=== PATIENT | female | born 1975 | race Caucasian/White ===

== ENCOUNTER → 2019-08-28 15:32 | Outpatient (CLI) | payer OTHER, SELFPAY ==
--- NOTE | 2019-08-28 15:44 | MRI_ITS ---
STUDY: MRI BRAIN WITH AND WITHOUT CONTRAST REASON FOR EXAM: Female, 44 years old. Ocular pain right eye. TECHNIQUE: Standardized multiplanar fat and water weighted pulse sequences were obtained. IV Dotarem 15 was administered for the contrast portion of the examination. Limited additional sequences for orbits. COMPARISON: None. FINDINGS: Normal size of the ventricles and extra-axial spaces for the patient's age. Normal white matter tracts of the supratentorial brain. There is no extra-axial fluid accumulation. Normal flow voids within the major intracranial circulation suggesting patency by spin echo criteria. Normal sella turcica and pineal gland. There is a 1 x 1 cm cystic lesion in the suprasellar cistern causing minimal superior bowing of the optic chiasm. The lesion is isointense to slightly hyperintense to lind matter on T1 and hyperintense on T2-weighted imaging. Normal pituitary infundibulum. Normal cavernous sinuses and cavernous carotid arteries. No enhancing lesion. Normal midbrain, mason and medulla. Normal cerebellum. Normal basal cisterns. Normal bilateral temporal bones. Normal bilateral internal auditory canals. No demonstrated orbital abnormality. Normal visualized paranasal sinuses. Normal calvarium and skull base. Normal visualized soft tissue structures. MRI/Brain W/WO Contrast IMPRESSION: 1. 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 Follow-up is advised. Electronically Signed: Valentina Loja MD at 19:56 EST Tel , Service support ,
== END ==
PROVIDERS: Family Provider Family Medicine; PCP Family Medicine; Referring Provider Psychiatry & Neurology Neurology; Visit Provider Psychiatry & Neurology Neurology
DX: H57.11 Ocular pain, right eye (principal)
CPT/HCPCS: 70553; A9575

== ENCOUNTER 2024-07-10 08:28 | Inpatient (IN) | payer OTHER, SELFPAY ==
[2024-07-10] VITALS (7 sets, daily range): BP systolic 107–139; BP diastolic 62–91; PULSE 72–99; RESP 16–18; TEMP 36.6–36.8; O2SAT 94–100; BMI 18.0; BMI 18.3
--- NOTE | 2024-07-10 08:50 | EX.ED.DYSGE1 ---
HPI History of Present Illness Chief Complaint: Abd Pain Detail of Chief Complaint: Abdominal pain with diarrhea Informant: patient and spouse/S.O. Onset/Context/Timing Onset: Days (Started night Wednesday.) Context: Sudden Onset Timing: Intermittent and Waxes and wanes Quality: Crampy/colicky pain Location: Generalized Current Severity: Mild Maximum Severity: Severe Worsened by: Any attempt to eat or drink anything Relieved by: Nothing Associated Symptoms Associated Symptoms: Thirst, dry mouth, orthostatic lightheadedness, decreased urine output Narrative Narrative: Patient 48-year-old woman with history of migraine headaches who was placed on antibiotic for sinus/ear infection. She was diagnosed with pseudomembranous enterocolitis and treated with vancomycin for 10 days. Her last dose of vancomycin was June 24. She presents because of diarrhea that started night Wednesday morning. She has 5+ watery stools per day. She has noted mucus. He has not noted blood. She states anytime she attempts to eat or drink anything it goes right through me . She does endorse thirst, dry mouth, orthostatic lightheadedness. She has had minimal urine output. She has not had any to eat since Wednesday. She does report crampy generalized abdominal pain.'s minimal at this time. She denies dysuria, frequency or hematuria. She denies back or flank pain. She has no other complaints. Prior similar symptoms: Yes (Diagnosed with pseudomembranous enterocolitis) Recent Illness/Hospitalization: Yes (Pseudomembranous enterocolitis June 14, 2024) [facility] [place] Medical History C. difficile diarrhea Home Medications ?Medication ?Instructions ?Recorded ?Last Taken ?Type lorazepam 1 mg tablet 1 mg PO BID PRN PRN Anxiety 01/03/17 Unknown History loperamide 2 mg capsule mg PO 07/10/24 Unknown History spironolactone 50 mg tablet mg PO 07/10/24 Unknown History topiramate 100 mg tablet 100 mg PO BID migraine 07/10/24 Unknown History Allergy/AdvReac Type Severity Reaction Status Date / Time azithromycin (From z pack) Allergy Mild Rash Verified 07/10/24 08:30 Social History (Updated 07/10/24 @ 09:[address] Willi Hanna MD) household members: spouse Smoking Status: Never smoker ROS ROS ED Constitutional Constitutional ED: Reports weight loss and other Details: Greater than a 10 pound weight loss ; Denies chills, fever(s), subjective or sweats Eyes Eyes: Denies blurry vision or change in vision ENT ENT ED: Denies ear pain, rhinorrhea or sore throat Cardiovascular Cardiovascular: Denies chest pain or palpitations Respiratory/Chest Respiratory/Chest: Denies cough, dyspnea or dyspnea on exertion Gastrointestinal Gastrointestinal: Reports abdominal pain, diarrhea, nausea, vomiting and other Details: Patient has vomited twice since onset of illness ; Denies constipation or melena Genitourinary Genitourinary ED: Reports other Details: Decreased urine output. ; Denies dysuria, hematuria or urinary frequency Musculoskeletal Musculoskeletal: Denies arthralgias or myalgias Integumentary Denies abscess or rash Neurologic Neurologic: Reports weakness; Denies headache(s) or paresthesias Hematologic/Lymphatic Hematologic/Lymphatic: Reports systems reviewed and no addt'l complaints, except as documented EXAM Physical Exam Const Vital Signs: 07/10/24 08:30 07/10/24 11:05 07/10/24 13:00 Temperature 98.1 F Temperature Source Oral Pulse Rate 99 72 81 Respiratory Rate 16 16 18 Blood Pressure 139/90 H 128/91 H 127/91 H Blood Pressure Mean 106 103 103 Pulse Ox 100 99 Oxygen Delivery Method Room Air 07/10/24 15:00 Temperature Temperature Source Pulse Rate 78 Respiratory Rate 16 Blood Pressure 117/62 Blood Pressure Mean 80 Pulse Ox 99 Oxygen Delivery Method Room Air Positive well nourished and well developed Constitutional Narrative: Patient appears ill. She is thin. Based on her weight she has lost 18 pounds. General Appearance ED: well developed and pallor; Negative for NAD HEENT Reports dry mucous membranes HEENT Narrative: Head is atraumatic normocephalic. Ears normal. Nares patent. Mouth ED: Yes dry mucous membranes Mouth: dry mucous membranes Eyes PERRL and EOMs intact bilaterally General Eye ED: Negative for pale conjunctiva or scleral icterus Neck no lymphadenopathy, supple and no JVD Chest Wall inspection of chest normal and palpation of chest normal Resp normal respiratory effort and clear to auscultation bilaterally Cardio regular rate, regular rhythm, S1 normal heart sound, S2 normal heart sound and no murmurs GI non-distended and no masses; Negative for normal to inspection, nondistended, normoactive bowel sounds, non-tender or hepatosplenomegaly GI Narrative: There is slight tympany to percussion. Bowel sounds are increased. There is some mild discomfort throughout. There is no guarding or peritoneal findings. Back/Spine no CVA tenderness Extremity normal to inspection General Extremety ED: Negative for edema or tenderness General Extremity: Negative for edema Neuro oriented x3, CN's II-XII intact bilaterally and no sensory deficits noted Sensorium / Orientation: alert Motor Exam: strength 5/5 throughout Psych Psych Narrative: Affect is flat. Skin no rashes or lesions noted, no wounds and No skin turgor normal General Skin Exam: elasticity normal and pallor; Negative for jaundice MDM MDM MDM Narrative Medical decision making narrative: Concern patient has relapse of the symptoms on her colitis. CBC, BMP, were obtained for restratification and determine treatment as well as rule out kidney injury and hypokalemia in light of the amount of diarrhea and poor p.o. intake she has. 1 L of normal saline was ordered. There are no records available at [facility] for the past several years. Test were performed at the [facility]. She was positive for C. difficile. History & Record Review Additional record(s) reviewed:: Prior outpatient record Lab Data Attestation: I reviewed the patient's lab results. Lab results narrative: CBC is essentially normal. UA reveals elevated specific gravity and positive for ketones. Macro is also positive for occult blood and leukoesterase. Suspect this is due to the fact that it is concentrated. Micro is pending. Basic metabolic panel reveals mild hypokalemia, 3.4. CO2 is 20 with an anion gap of 16. This does represent a increased anion gap acidosis consistent with diarrhea. Glucose is low at 68. Labs: Laboratory Results - last 24 hr 07/10/24 07/10/24 08:55 08:57 WBC 8.7 RBC 4.96 Hgb 14.4 Hct 44.0 MCV 88.7 MCH 29.0 MCHC 32.7 RDW Std Deviation 40.3 RDW Coeff of Stephany 12.4 Plt Count 238 MPV 10.3 Immature Gran % (Auto) 0.500 Neut % (Auto) 77.8 H Lymph % (Auto) 10.5 L Mcpherson % (Auto) 8.0 Eos % (Auto) 2.3 Baso % (Auto) 0.9 Absolute Neuts (auto) 6.7 Absolute Lymphs (auto) 0.91 Nucleated RBC % 0 Sodium 140 Potassium 3.4 L Chloride 104 Carbon Dioxide 20.0 L Anion Gap 16 H BUN 17 Creatinine 0.90 Estim Creat Clear Calc 61.75 Est GFR (MDRD) Af Amer 86 Est GFR (MDRD) Non-Af 71 BUN/Creatinine Ratio 19.0 Glucose 68 L Lactic Acid 1.5 Calcium 9.2 Urine Color Yellow Urine Clarity Sl. Cloudy Urine pH 5.0 Ur Specific [place] 1.030 Urine Protein 30 H Urine Glucose (UA) Normal Urine Ketones 150 A* Urine Occult Blood 25 H Urine Nitrite Negative Urine Bilirubin Negative Urine Urobilinogen Normal Ur Leukocyte Esterase 25 H Management Discussion w/another healthcare provider: Hospitalist (Discussed case with Dr. Pritchett. Patient be a full admit MedSurg. He will obtain CT of the abdomen.) Treatment and Re-Evaluation :: Reassessed patient at 10/11/2002. Patient is in a position. She was reluctant to take pain medicine. After her spoke to her she was agreeable. She has had 3 loose stools since arrival. Waiting for stool for C. difficile to return. 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 Patient has not urinated in spite of 1 L normal saline. Second liter of fluids was ordered. Comments:: Patient is made no urine since second liter of fluids have infused. Will order D5 half-normal at 250 an hour. The hospitalist been paged and she has had 12:45 crackers since she has been here. I suspect her diarrhea is due to recurrent Pseudomonas enterocolitis. She had 5 loose stools prior to arrival and 3 here unfortunately should not tell the nurse she had used the restroom and no sample was obtained prior to me giving her first dose of vancomycin. Discharge Plan Dx/Rx/DC Orders Clinical Impression: Diarrhea, Dehydration, Ketosis, Unintentional weight loss of more than 10 pounds, Anorexia Disposition Disposition: Acute Care [facility]
[2024-07-10] MEDS: 0.9% Normal Saline (1000mL) 1,000 ML 999 ML IV (08:57)
[2024-07-10 09:06] LABS: Absolute Lymphocyte Count 0.91 X10^3/uL (0.83-4.51); Absolute Neutrophil Count 6.7 X10^3/uL (2.0-7.7); Basophil# 0.08 X10^3/uL; Basophil% 0.9 % (0-1); Eosinophils% 2.3 % (0-5); Hemoglobin 14.4 g/dL (12.0-15.0); Lymphocyte # 0.91 X10^3/ul (0.83-4.51); Lymphocyte % 10.5 % (19-41); Mean Corp Hgb Conc 32.7 g/dL (32-36); Mean Corpuscular Volume 88.7 fL (81-99); Mean Platelet Vol. 10.3 fl (6.2-12.0); Monocyte# 0.69 X10^3/uL; NRBC Flagged by Analyzer 0 % (0-5); Neutrophil # 6.73 X10^3/uL (2.7-7.7); Neutrophil % 77.8 % (47-70); Platelet Count 238 K/mm3 (150-450); RBC Distribution Width CV 12.4 % (11.6-14.6); RBC Distribution Width SD 40.3 fl (35.1-43.9); Red Blood Count 4.96 M/mm3 (4.2-5.4); White Blood Count 8.7 K/mm3 (4.4-11.0)
[2024-07-10 09:06] LABS: Color, Urine Yellow (Yellow); Glucose, Dipstick Normal (Normal); Leukocyte Esterase-Dipstick 25 /ul (Negative); Nitrite-Dipstick Negative (Negative); Occult Blood-Urine 25 /ul (Negative); Protein-Dipstick 30 mg/dl (Negative); Urine Bilirubin Dipstick Negative (Negative); Urine Clarity Sl. Cloudy (Clear); Urine Urobilinogen Normal (Normal)
[2024-07-10 09:10] LABS: Ketone-Dipstick 150 mg/dl (Negative)
[2024-07-10 09:21] LABS: Anion Gap 16 (5-15); BUN 17 mg/dL (7-18); Calcium,Total 9.2 mg/dL (8.5-10.1); Chloride 104 mmol/L (98-107); EST Glomerular Filtration Rate 71 mL/min (>60); Est Glom Filt Rate - Afr Amer 86 mL/min (>60); Estimated Creatinine Clearance 61.75 ml/min; Glucose 68 mg/dL (74-106); Potassium 3.4 mmol/L (3.5-5.1); Sodium Level 140 mmol/L (136-145)
[2024-07-10 09:30] LABS: Lactic Acid 1.5 mmol/L (0.4-1.9)
[2024-07-10] MEDS: Dextrose 5%/0.9% NaCl 1,000 ML 1000 ML IV (11:35)
[2024-07-10] MEDS: Vancomycin 125 MG/5 ML Susp PO.SYRINGE PO ×2 (11:55→18:41)
[2024-07-10] MEDS: Morphine 2 MG/ML Syringe IV (11:55)
--- NOTE | 2024-07-10 15:15 | HP.PCM.HOS_ITS ---
HPI - General General Date of Admission: 07/10/24 Date of Service: 07/10/24 Chief Complaint: Abdominal pain with loose stools HPI Narrative MANSOOR STANLEY, is a 48 F who presented to [facility] ED on 07/10/2024 with worsening abdominal pain and loose stools. Patient was recently diagnosed with C. difficile by her PCP. She saw her PCP about 2 weeks ago for new onset diarrhea. Patient was having 10+ bowel movements per day. Patient had been on antibiotics in April (amoxicillin and doxycycline) for an upper respiratory infection. Her C. difficile toxin was positive on 06/24. She completed 10 days p.o. vancomycin last Thursday 07/05. However, she did not have complete resolution of loose stools while on the vancomycin and had worsening stool output by evening. Since she has been having 5+ bowel movements per day of watery diarrhea. She denies any blood in the stool. She has not been able to eat or drink much since due to some nausea and that everything she eats or drinks seems to go right through her. She reports abdominal cramping in her lower abdomen fairly diffusely. Denies any areas of significant tenderness to palpation. Patient was hemodynamically stable and afebrile in the ED. Labs notable for normal WBC count of 8, potassium 3.4, bicarb 20, creatinine 0.90, normal lactic acid, normal LFTs. UA showed 150 ketones, was otherwise benign. CT abdomen pelvis with IV contrast showed diffuse colonic wall thickening with mild pericolonic fat stranding, with findings most severe in the ascending and transverse colon. Given his findings, hospitalist was contacted for admission. I saw the patient at bedside in the ED, was present. Patient was mildly fatigued appearing but otherwise laying fairly comfortably in bed, conversing normally, in no acute distress. She had been given a dose of IV morphine about an hour prior to my encounter with her and she stated this was very helpful for her pain. She has not had any bowel movements since this morning. She denied any fevers or chills. Denied any other pain or discomfort. She has minimal past medical history. Has history of migraines and takes topiramate and also gets Botox injections for this. Only other medication is spironolactone that she takes for acne. Has never had a colonoscopy before. No other acute concerns at this time. [facility] Medical History (Updated 07/10/24 @ 17:[address] Eric Pritchett, DO) Non-smoker Migraines C. difficile diarrhea Home Medications ?Medication ?Instructions ?Recorded ?Last Taken ?Type onabotulinumtoxinA .ROUTE MIGRANES 07/10/24 Unknown History spironolactone 50 mg tablet 50 mg PO DAILY ACNE 07/10/24 Unknown History topiramate 100 mg tablet 100 mg PO DAILY migraine 07/10/24 Unknown History Allergy/AdvReac Type Severity Reaction Status Date / Time azithromycin (From z pack) Allergy Mild Rash Verified 07/10/24 08:30 Surgical History (Updated 07/10/24 @ 16:27 by Tracy Luciano) History of cholecystectomy Social History (Updated 07/10/24 @ 09:[address] Willi Hanna MD) household members: spouse Smoking Status: Never smoker ROS Constitutional Constitutional: Reports fatigue; Denies chills, fever(s) or weakness Eyes Eyes: Denies change in vision Cardiovascular Cardiovascular: Denies chest pain Respiratory/Chest Respiratory/Chest: Denies shortness of breath at rest Gastrointestinal Gastrointestinal: Reports abdominal pain, diarrhea, loose stools and nausea; Denies constipation, hematochezia, melena or vomiting Genitourinary Genitourinary: Denies dysuria Musculoskeletal Musculoskeletal: Denies arthralgias or myalgias Neurologic Neurologic: Denies dizziness, focal weakness or headache(s) Vital Signs Vital Signs Vital Signs: 07/10/24 08:30 07/10/24 11:05 07/10/24 13:00 Temperature 98.1 F Temperature Source Oral Pulse Rate 99 72 81 Respiratory Rate 16 16 18 Blood Pressure 139/90 H 128/91 H 127/91 H Blood Pressure Mean 106 103 103 Pulse Ox 100 99 Oxygen Delivery Method Room Air 07/10/24 15:00 Temperature Temperature Source Pulse Rate 78 Respiratory Rate 16 Blood Pressure 117/62 Blood Pressure Mean 80 Pulse Ox 99 Oxygen Delivery Method Room Air Weight Weight: 50.621 kg Body Mass Index (BMI) 18.0 Physical Exam Const alert, oriented x3 and no apparent distress Constitutional Narrative: Pleasant middle-age female, thin appearing, mildly fatigued appearing, otherwise laying comfortably in bed, conversing normally, in no acute distress. General Appearance: cooperative and comfortable HEENT normocephalic, head/scalp atraumatic, hearing grossly normal bilaterally and nasal mucous membranes and turbinates normal Eyes PERRL, EOMs intact bilaterally and conjunctivae normal Neck full ROM Chest inspection of chest normal Resp normal respiratory effort, normal air movement, no use of accessory muscles and clear to auscultation bilaterally Cardio regular rate, regular rhythm, no murmurs and peripheral pulses 2+ throughout GI GI Narrative: Mild tenderness to palpation diffusely in lower abdomen. Abdomen otherwise soft and nondistended with normal bowel sounds. Back/Spine normal ROM Extremity normal to inspection, full ROM and no pedal edema Skin no rashes or lesions noted Neuro moves all extremities and no focal motor deficits Speech: speech normal Psych mental status grossly normal Results Lab / Micro Data 07/10/24 08:55 07/10/24 08:55 Labs: Laboratory Results - last 24 hr 07/10/24 08:55: WBC 8.7, RBC 4.96, Hgb 14.4, Hct 44.0, MCV 88.7, MCH 29.0, MCHC 32.7, RDW Std Deviation 40.3, RDW Coeff of Stephany 12.4, Plt Count 238, MPV 10.3, Immature Gran % (Auto) 0.500, Neut % (Auto) 77.8 H, Lymph % (Auto) 10.5 L, Villalba % (Auto) 8.0, Eos % (Auto) 2.3, Baso % (Auto) 0.9, Absolute Neuts (auto) 6.7, Absolute Lymphs (auto) 0.91, Nucleated RBC % 0, Sodium 140, Potassium 3.4 L, Chloride 104, Carbon Dioxide 20.0 L, Anion Gap 16 H, BUN 17, Creatinine 0.90, Estim Creat Clear Calc 61.75, Est GFR (MDRD) Af Amer 86, Est GFR (MDRD) Non-Af 71, BUN/Creatinine Ratio 19.0, Glucose 68 L, Lactic Acid 1.5, Calcium 9.2 07/10/24 08:57: Urine Color Yellow, Urine Clarity Sl. Cloudy, Urine pH 5.0, Ur Specific [place] 1.030, Urine Protein 30 H, Urine Glucose (UA) Normal, Urine Ketones 150 A*, Urine Occult Blood 25 H, Urine Nitrite Negative, Urine Bilirubin Negative, Urine Urobilinogen Normal, Ur Leukocyte Esterase 25 H Assessment & Plan Assessment/Plan (1) Colitis: (2) C. difficile enteritis: (3) Underweight: PLAN: Plan Patient is a 48-year-old female who presented [facility] ED on 07/10/2024 with worsening abdominal pain and diarrhea. 1. Diffuse colitis, recent history of C. difficile infection ? Admit under inpatient status to [facility]. GI consulted. CT abdomen pelvis on admit showed diffuse colitis, worst in the ascending and transverse colon. C. difficile toxin was positive on 06/24 (in [facility] records). Completed 10-day course of vancomycin without much improvement. Patient afebrile, hemodynamically stable, normal WBC count so no concern for severe C. difficile infection. Suspect findings are in part due to failed antibiotic therapy for C. difficile but cannot rule out secondary pathology. Enteric stool panel, stool WBC and lactoferrin ordered. Unfortunately it does not appear we have fidaxomicin on formulary. Will treat with p.o. vancomycin for now; appreciate further GI recommendations. Clear liquid diet ordered. Low-dose p.o. oxycodone and IV Dilaudid as needed ordered for pain management. 2. Mild hypokalemia ? Potassium 3.4 on admit. Mag and Phos normal. Suspect due to GI losses. Replete as needed. 3. Underweight BMI ? BMI 18.4 on admit. Patient reports being thin at baseline but has not been eating much over the past few weeks due to the C. difficile infection. Nutrition consulted. 4. History of migraines ? Stable. Continue home topiramate. 5. History of acne ? Continue home spironolactone. DVT prophylaxis: Lovenox CODE STATUS: Full code, verified Expected disposition: Home, 2 to 3 days Total clinical time spent by myself addressing the patient's medical issues, reviewing all the data, and collaborating with patient's care team: 55 minutes. Charges/Coding Visit Charges Inpatient E&M: 21874 Init Hosp L2
--- NOTE | 2024-07-10 15:20 | CT_ITS ---
INDICATION: worsening abd pain w/ concern for recurrent c diff EXAMINATION: CT ABDOMEN AND PELVIS WITH CONTRAST - CT Abdomen And Pelvis W/ Contrast Injection TECHNIQUE: Helically acquired images were obtained of the abdomen and pelvis following IV contrast. A radiation dose optimization technique was used for this scan. IV Contrast dosage and agent: 75 cc [id number]-300 Oral contrast: None. COMPARISON: None. FINDINGS: LOWER CHEST: Lung bases are clear. No cardiomegaly or pericardial effusion. LIVER: Homogeneous. No focal mass. GALLBLADDER AND BILIARY TREE: Gallbladder not seen, presumed surgically absent. No intra- or extrahepatic biliary ductal dilation. PANCREAS: No focal cystic or solid mass. SPLEEN: Normal size without focal cystic or solid mass. ADRENAL GLANDS: No nodules. KIDNEYS AND URETERS: Uniform enhancement. No hydronephrosis. PERITONEUM: No ascites or free air. BOWEL: Normal appendix. No stomach or bowel distension. Diffuse colonic wall thickening with mild pericolonic fatty stranding, findings most severe in the ascending and transverse colon. LYMPH NODES: No enlarged mesenteric or retroperitoneal lymph nodes. VESSELS: Aorta is non-dilated. URINARY BLADDER: Unremarkable. REPRODUCTIVE ORGANS: No pelvic masses. ABDOMINAL WALL: Small fat-containing umbilical hernia. BONES: No acute or aggressive abnormality. CT/Abdomen/Pelvis W IV Cont ONLY IMPRESSION: Findings consistent with diffuse colitis. Electronically Signed: Niko Melvin MD at 16:10 EDT ,
[2024-07-10] MEDS: Dextrose 5%/0.9% NaCl 1,000 ML 250 ML IV (15:56)
[2024-07-10 16:26] LABS: AST(SGOT) 18 U/L (15-37); Alanine Aminotransfer ALT/SGPT 21 U/L (13-56); Alkaline Phosphatase 61 U/L (45-117); Bilirubin, Direct 0.14 mg/dL (0.00-0.30); Globulin 3.9 g/dL (2.2-4.2); Magnesium 2.1 mg/dL (1.6-2.6); Phosphorus 3.2 mg/dL (2.5-4.9); Protein, Total 7.9 g/dL (6.4-8.2)
[2024-07-10] MEDS: 0.9% Saline Lock 10 ML Syringe IV (17:20)
[2024-07-10] MEDS: Ondansetron 4 MG/2 ML Vial IV (17:20)
[2024-07-10] MEDS: Acetaminophen 325 MG Tablet 650 MG PO (17:20)
[2024-07-10] MEDS: Lactated Ringers 1,000 ML 75 ML IV (17:20)
--- NOTE | 2024-07-10 18:34 | CON.PCM.GI_ITS ---
HPI Consult Data Date of Consult: 07/10/24 HPI Narrative HPI Narrative: MANSOOR STANLEY, is a 48 F who presented with worsening abdominal pain. She has a past medical history of migraine headaches who was placed on antibiotic for sinus/ear infection. She was diagnosed with pseudomembranous enterocolitis and treated with vancomycin for 10 days. Her last dose of vancomycin was June 24. She presents because of diarrhea that started night Wednesday morning. She has 5+ watery stools per day. She has noted mucus. He has not noted blood. She states anytime she attempts to eat or drink anything it goes right through me . She does endorse thirst, dry mouth, orthostatic lightheadedness. She has had minimal urine output. She has not had any to eat since Wednesday. She was afebrile when she presented to the hospital. CBC shows normal white count with normal BUN to creatinine ratio. She had a CT scan abdomen pelvis in the ED which showed diffuse colitis throughout almost her entire colon. She has not had any bowel movements since she received vancomycin in the hospital.At this time she is having some mild abdominal pain and cramping. She denies any blood per rectum. [facility] Medical History (Updated 07/10/24 @ 17:[address] Eric Pritchett, DO) Non-smoker Migraines C. difficile diarrhea Home Medications ?Medication ?Instructions ?Recorded ?Last Taken ?Type onabotulinumtoxinA .ROUTE MIGRANES 07/10/24 Unknown History spironolactone 50 mg tablet 50 mg PO DAILY ACNE 07/10/24 Unknown History topiramate 100 mg tablet 100 mg PO DAILY migraine 07/10/24 Unknown History Allergy/AdvReac Type Severity Reaction Status Date / Time azithromycin (From z pack) Allergy Mild Rash Verified 07/10/24 08:30 Surgical History (Updated 07/10/24 @ 16:27 by Tracy Luciano) History of cholecystectomy Social History (Updated 07/10/24 @ 09:[address] Willi Hanna MD) household members: spouse Smoking Status: Never smoker ROS Constitutional Constitutional: Reports fatigue; Denies chills, fever(s) or weakness Eyes Eyes: Denies change in vision Cardiovascular Cardiovascular: Denies chest pain Respiratory/Chest Respiratory/Chest: Denies shortness of breath at rest Gastrointestinal Gastrointestinal: Reports abdominal pain, diarrhea, loose stools and nausea; Denies constipation, hematochezia, melena or vomiting Genitourinary Genitourinary: Denies dysuria Musculoskeletal Musculoskeletal: Denies arthralgias or myalgias Neurologic Neurologic: Denies dizziness, focal weakness or headache(s) Physical Exam Const alert, oriented x3 and no apparent distress General Appearance: cooperative and comfortable HEENT normocephalic, head/scalp atraumatic, hearing grossly normal bilaterally and nasal mucous membranes and turbinates normal Eyes PERRL, EOMs intact bilaterally and conjunctivae normal Neck full ROM Chest inspection of chest normal Resp normal respiratory effort, normal air movement, no use of accessory muscles and clear to auscultation bilaterally Cardio regular rate, regular rhythm, no murmurs and peripheral pulses 2+ throughout GI GI Narrative: Mild tenderness to palpation diffusely in lower abdomen. Abdomen otherwise soft and nondistended with normal bowel sounds. Back/Spine normal ROM Extremity normal to inspection, full ROM and no pedal edema Skin no rashes or lesions noted Neuro moves all extremities and no focal motor deficits Speech: speech normal Psych mental status grossly normal Lab / Micro Data 07/10/24 08:55 07/10/24 08:55 Labs: Laboratory Results - last 24 hr 07/10/24 08:55: WBC 8.7, RBC 4.96, Hgb 14.4, Hct 44.0, MCV 88.7, MCH 29.0, MCHC 32.7, RDW Std Deviation 40.3, RDW Coeff of Stephany 12.4, Plt Count 238, MPV 10.3, Immature Gran % (Auto) 0.500, Neut % (Auto) 77.8 H, Lymph % (Auto) 10.5 L, [place] % (Auto) 8.0, Eos % (Auto) 2.3, Baso % (Auto) 0.9, Absolute Neuts (auto) 6.7, Absolute Lymphs (auto) 0.91, Nucleated RBC % 0, Sodium 140, Potassium 3.4 L, Chloride 104, Carbon Dioxide 20.0 L, Anion Gap 16 H, BUN 17, Creatinine 0.90, Estim Creat Clear Calc 61.75, Est GFR (MDRD) Af Amer 86, Est GFR (MDRD) Non-Af 71, BUN/Creatinine Ratio 19.0, Glucose 68 L, Lactic Acid 1.5, Calcium 9.2, Phosphorus 3.2, Magnesium 2.1, Total Bilirubin 0.50, Direct Bilirubin 0.14, AST 18, ALT 21, Alkaline Phosphatase 61, Total Protein 7.9, Albumin 4.0, Globulin 3.9 07/10/24 08:57: Urine Color Yellow, Urine Clarity Sl. Cloudy, Urine pH 5.0, Ur Specific [place] 1.030, Urine Protein 30 H, Urine Glucose (UA) Normal, Urine Ketones 150 A*, Urine Occult Blood 25 H, Urine Nitrite Negative, Urine Bilirubin Negative, Urine Urobilinogen Normal, Ur Leukocyte Esterase 25 H Imaging Radiology Impression Abdomen/Pelvis CT 07/10/24 15:20 IMPRESSION: Findings consistent with diffuse colitis. Electronically Signed: Niko Melvin MD at 16:10 EDT , Assessment & Plan Assessment/Plan (1) Colitis: (2) C. difficile enteritis: (3) Underweight: PLAN: Plan Patient is a 48-year-old female who presented with worsening abdominal pain and diarrhea.She recently finished a course of vancomycin for acute C. difficile colitis secondary to antibiotics that she received as an outpatient. She has been on probiotics. She has not had any more antibiotics. As per whose with her at the bedside he says that her symptoms really never got better and she did complain of some cramping and diarrhea. Her enteric stool panel, CBC, lactoferrin is pending. She will need to get fecal elastase and fecal calprotectin along with labs for inflammatory bowel disease. That is also on the differential diagnosis along with ischemic colitis. She is okay with the plan. She would likely need to be on antibiotics for the next 6 weeks. After that is completed she will likely need monoclonal antibody for toxin A. Charges/Coding Visit Charges Inpatient E&M: 82959 Init Hosp L3
[2024-07-11] VITALS (7 sets, daily range): BP systolic 106–123; BP diastolic 71–78; PULSE 75–99; RESP 16–18; TEMP 36.6–37.3; O2SAT 94–100
[2024-07-11] MEDS: Acetaminophen 325 MG Tablet 650 MG PO ×2 (00:02→21:44)
[2024-07-11] MEDS: Vancomycin 125 MG/5 ML Susp PO.SYRINGE PO ×5 (00:03→23:47)
[2024-07-11] MEDS: Lactated Ringers 1,000 ML 75 ML IV ×2 (05:48→17:46)
[2024-07-11] MEDS: Ondansetron 4 MG/2 ML Vial IV ×2 (06:44→16:08)
[2024-07-11 07:03] LABS: Hematocrit 37.3 % (37-47); Hemoglobin 12.3 g/dL (12.0-15.0); Mean Corpuscular Hgb 28.5 pg (27.0-32.0); Mean Corpuscular Volume 86.3 fL (81-99); Mean Platelet Vol. 10.1 fl (6.2-12.0); Platelet Count 227 K/mm3 (150-450); RBC Distribution Width CV 12.3 % (11.6-14.6); RBC Distribution Width SD 39.1 fl (35.1-43.9); Red Blood Count 4.32 M/mm3 (4.2-5.4); White Blood Count 6.5 K/mm3 (4.4-11.0)
[2024-07-11 07:14] LABS: AST(SGOT) 17 U/L (15-37); Alanine Aminotransfer ALT/SGPT 18 U/L (13-56); Albumin, Serum 3.1 g/dL (3.2-5.0); Alkaline Phosphatase 47 U/L (45-117); Anion Gap 9 (5-15); BUN 7 mg/dL (7-18); BUN/Creat Ratio 12.7 RATIO (10-20); Calcium,Total 8.4 mg/dL (8.5-10.1); Chloride 109 mmol/L (98-107); Creatinine, Serum 0.55 mg/dL (0.55-1.02); EST Glomerular Filtration Rate 125 mL/min (>60); Est Glom Filt Rate - Afr Amer 151 mL/min (>60); Estimated Creatinine Clearance 103.13 ml/min; Globulin 3.2 g/dL (2.2-4.2); Glucose 74 mg/dL (74-106); Potassium 3.3 mmol/L (3.5-5.1); Protein, Total 6.3 g/dL (6.4-8.2); Sodium Level 138 mmol/L (136-145)
[2024-07-11] MEDS: Dicyclomine 10 MG Capsule 20 MG PO ×3 (08:44→16:07)
[2024-07-11] MEDS: Spironolactone 50 MG Tablet PO (09:57)
[2024-07-11] MEDS: Enoxaparin 40 MG/0.4 ML Syringe SC (09:57)
[2024-07-11] MEDS: Topiramate 100 MG Tablet PO (09:58)
--- NOTE | 2024-07-11 12:30 | CASEMGMT ---
DONNA WHEELER Assessment: Face to Face with pt for initial transition planning/care coordination assessment. DONNA WHEELER introduced self and role at [facility], pt voices understanding and consents to assessment. Pt is A&O x4 and answers all questions appropriately at this time. Pt lying in bed in no distress. Care providers, pharmacy, and demographics verified/updated. Admitting Dx: abd pain with diarrhea, concern for cdiff Strata Score: 1 PCP:Chin Specialists:cody Jarrell Preferred Pharmacy: [facility] Insurance: [employer] Prescription Benefit: yes LNOK: Hussain Marcelo, Living Arrangements: Pt lives with in a single story home with 2 steps to enter. Pt reports she is I in ADLs and denies concerns at home. Transportation: Pt drives self and denies concerns with transportation. DME:Denies HHC/SNF: Denies hx of Pt states no concerns with going home at time of dc. Pt states no further concerns/needs. CM to follow. Advised pt to ask CM if any further question/concerns/needs arise, voices understanding. Pt Goal: Home Plan: Home [place] CM
--- NOTE | 2024-07-11 13:08 | PN.HOSP_ITS ---
Reason for Visit Reason for Visit: Diagnoses Enterocolitis due to Clostridium difficile, not specified as recurrent (07/10/24) Noninfective gastroenteritis and colitis, unspecified (07/10/24) Underweight (07/10/24) Objective Data Objective Data Vital Signs: Vital Signs Temp Pulse Resp BP Pulse Ox O2 Del Method 97.9 F 87 18 123/71 H 94 Room Air 07/11/24 05:00 07/11/24 05:00 07/11/24 05:00 07/11/24 05:00 07/11/24 05:00 07/11/24 05:00 Oxygen Delivery Method Room Air Weight: 113 lb 14.4 oz Body Mass Index (BMI) 18.3 Intake & Output: Intake and Output for Last 24 Hours 07/09/24 07/10/24 07/11/24 23:59 23:59 23:59 Intake Total 2429.17 / 3285.17 2447 / 2447 Balance 2429.17 / 3285.17 2447 / 2447 Lab / Micro Data 07/11/24 06:40 07/11/24 06:40 Labs: Laboratory Results - last 24 hr 07/10/24 08:55: WBC 8.7, RBC 4.96, Hgb 14.4, Hct 44.0, MCV 88.7, MCH 29.0, MCHC 32.7, RDW Std Deviation 40.3, RDW Coeff of Stephany 12.4, Plt Count 238, MPV 10.3, Immature Gran % (Auto) 0.500, Neut % (Auto) 77.8 H, Lymph % (Auto) 10.5 L, [place] % (Auto) 8.0, Eos % (Auto) 2.3, Baso % (Auto) 0.9, Absolute Neuts (auto) 6.7, Absolute Lymphs (auto) 0.91, Nucleated RBC % 0, Sodium 140, Potassium 3.4 L, Chloride 104, Carbon Dioxide 20.0 L, Anion Gap 16 H , BUN 17, Creatinine 0.90, Estim Creat Clear Calc 61.75, Est GFR (MDRD) Af Amer 86, Est GFR (MDRD) Non-Af 71, BUN/Creatinine Ratio 19.0, Glucose 68 L, Lactic Acid 1.5, Calcium 9.2, Phosphorus 3.2, Magnesium 2.1, Total Bilirubin 0.50, Direct Bilirubin 0.14, AST 18, ALT 21, Alkaline Phosphatase 61, Total Protein 7.9, Albumin 4.0, Globulin 3.9 07/10/24 08:57: Urine Color Yellow, Urine Clarity Sl. Cloudy, Urine pH 5.0, Ur Specific [place] 1.030, Urine Protein 30 H, Urine Glucose (UA) Normal, Urine Ketones 150 A*, Urine Occult Blood 25 H, Urine Nitrite Negative, Urine Bilirubin Negative, Urine Urobilinogen Normal, Ur Leukocyte Esterase 25 H 07/11/24 06:40: WBC 6.5, RBC 4.32, Hgb 12.3, Hct 37.3, MCV 86.3, MCH 28.5, MCHC 33.0, RDW Std Deviation 39.1, RDW Coeff of Stephany 12.3, Plt Count 227, MPV 10.1, Sodium 138, Potassium 3.3 L, Chloride 109 H, Carbon Dioxide 19.0 L, Anion Gap 9, BUN 7, Creatinine 0.55, Estim Creat Clear Calc 103.13, Est GFR (MDRD) Af Amer 151, Est GFR (MDRD) Non-Af 125, BUN/Creatinine Ratio 12.7, Glucose 74, Calcium 8.4 L, Total Bilirubin 0.50, AST 17, ALT 18, Alkaline Phosphatase 47, Total Protein 6.3 L, Albumin 3.1 L, Globulin 3.2, Albumin/Globulin Ratio 1.0 Radiography Diagnostic Testing: Radiology Impression Abdomen/Pelvis CT 07/10/24 15:20 IMPRESSION: Findings consistent with diffuse colitis. Electronically Signed: Niko Melvin MD at 16:10 EDT , Physical Exam Narrative Seen and examined. Patient had at least 1 week course of amoxicillin and doxycycline in April 2024. Had 10 days of oral vancomycin completed on 07/05. She had improvement in diarrhea and cramps but it got worse since last evening. Physical exam General: Alert, Oriented x3, Cooperative fatigue. HEENT: Atraumatic, PERRLA, EOMI, Normocephalic Oral: Oral mucosa dry no Gingival or Mucosal Lesions/ Ulcerations Neck: Supple, No JVD, Negative Carotid Bruits Chest wall/Lungs: Air entry diminished in bilateral lung bases. No crepitation/rhonchi Cardiovascular: Regular rate, Regular Rhythm, Normal S1, Normal S2, No M/G/R Abdomen: Bowel Sounds Present, Soft, mild tenderness in lower quadrants. Non- Distended : No dysuria. No renal angle tenderness. No suprapubic tenderness. Extremities: No edema, Capillary Refill Less than 3 Seconds Skin: No rashes, No breakdown Musculoskeletal: No Tenderness to Palpation of Joints or Extremities Neurological: Cranial nerves II-XII grossly intact, DTR 2+/4. No acute focal neurological deficit. Psych/Mental Status: Flat affect Assessment & Plan Assessment/Plan (1) Colitis: (2) C. difficile enteritis: (3) Underweight: PLAN: Plan Patient is a 48-year-old female who presented [facility] ED on 07/10/2024 with worsening abdominal pain and diarrhea. The patient has not drink water and food since last . Recently finished treatment for C. difficile. Weight loss more than 10 pounds. 1. Diffuse colitis due to first recurrence of C. difficile colitis after improvement on 10 days of index C. difficile colitis: Admitted under inpatient status. GI consulted. CT abdomen pelvis imaging individually reviewed which showed diffuse colitis, worst in the ascending and transverse colon. C. difficile toxin was positive on 06/24 (in [facility] records). Completed 10-day course of vancomycin without much improvement on 07/05. Patient afebrile, hemodynamically stable, normal WBC count, normal creatinine so no concern for severe C. difficile infection. Although preferred therapeutic agent is fidaxomicin but unfortunately we do not have on formulary. Patient is on pulse and taper vancomycin therapy. Discussed with ID. Vancomycin 125 mg p.o. for 2 weeks then 125 mg twice daily for 7 days, 125 mg daily for 7 days then 125 mg every other day for 2 to 4 weeks. Clear liquid diet ordered. Low-dose p.o. oxycodone and IV Dilaudid as needed ordered for pain management. 2. Mild hypokalemia ? Potassium 3.4 on admit. Mag and Phos normal. Suspect due to GI losses. Replete as needed. 07/11 repeat potassium 3.3. Serum magnesium and phosphorus level normal. 3. Underweight BMI ? BMI 18.4 on admit. Patient reports being thin at baseline but has not been eating much over the past few weeks due to the C. difficile infection. Nutrition consulted. 4. History of migraines Continue home topiramate. 5. History of acne ? Continue home spironolactone. DVT prophylaxis: Lovenox CODE STATUS: Full code, verified Charges/Coding Visit Charges Inpatient E&M: 03630 Subs Hosp L2
--- NOTE | 2024-07-11 13:31 | PCM.PN.HOSP ---
Reason for Visit Reason for Visit: Diagnoses Enterocolitis due to Clostridium difficile, not specified as recurrent (07/10/24) Noninfective gastroenteritis and colitis, unspecified (07/10/24) Underweight (07/10/24) Objective Data Objective Data Vital Signs: Vital Signs Temp Pulse Resp BP Pulse Ox O2 Del Method 99.2 F H 77 16 114/77 100 Room Air 07/11/24 10:00 07/11/24 10:00 07/11/24 10:00 07/11/24 10:00 07/11/24 10:00 07/11/24 10:00 Oxygen Delivery Method Room Air Weight: 113 lb 14.4 oz Body Mass Index (BMI) 18.3 Intake & Output: Intake and Output for Last 24 Hours 07/09/24 07/10/24 07/11/24 23:59 23:59 23:59 Intake Total 2429.17 / 3285.17 2447 / 2447 Balance 2429.17 / 3285.17 2447 / 2447 Lab / Micro Data 07/11/24 06:40 07/11/24 06:40 Labs: Laboratory Results - last 24 hr 07/10/24 08:55: Phosphorus 3.2, Magnesium 2.1, Total Bilirubin 0.50, Direct Bilirubin 0.14, AST 18, ALT 21, Alkaline Phosphatase 61, Total Protein 7.9, Albumin 4.0, Globulin 3.9 07/11/24 06:40: WBC 6.5, RBC 4.32, Hgb 12.3, Hct 37.3, MCV 86.3, MCH 28.5, MCHC 33.0, RDW Std Deviation 39.1, RDW Coeff of Stephany 12.3, Plt Count 227, MPV 10.1, Sodium 138, Potassium 3.3 L, Chloride 109 H, Carbon Dioxide 19.0 L, Anion Gap 9, BUN 7, Creatinine 0.55, Estim Creat Clear Calc 103.13, Est GFR (MDRD) Af Amer 151, Est GFR (MDRD) Non-Af 125, BUN/Creatinine Ratio 12.7, Glucose 74, Calcium 8.4 L, Total Bilirubin 0.50, AST 17, ALT 18, Alkaline Phosphatase 47, Total Protein 6.3 L, Albumin 3.1 L, Globulin 3.2, Albumin/Globulin Ratio 1.0 Micro: Microbiology 07/10/24 10:00 Stool C. difficile GDH Antigen & Toxins - Final Toxigenic C. difficile 07/10/24 10:00 Stool Clostridioides difficile (PCR) - Final Radiography Diagnostic Testing: Radiology Impression Abdomen/Pelvis CT 07/10/24 15:20 IMPRESSION: Findings consistent with diffuse colitis. Electronically Signed: Niko Melvin MD at 16:10 EDT , Physical Exam Narrative Seen and examined.
--- NOTE | 2024-07-11 17:29 | EX.PCM.PN.GI ---
Subjective Subjective Patient is still having a lot of urgency and cramping. She is not able to keep much down. She is down about 5 pounds since being in the hospital. She has not seen any blood per rectum. Objective Data Objective Data Vital Signs: Vital Signs Temp Pulse Resp BP Pulse Ox O2 Del Method 99.0 F 76 16 117/78 99 Room Air 07/11/24 17:21 07/11/24 17:21 07/11/24 17:21 07/11/24 17:21 07/11/24 17:21 07/11/24 17:21 Oxygen Delivery Method Room Air Weight: 113 lb 14.394 oz Body Mass Index (BMI) 18.3 Intake & Output: Intake and Output for Last 24 Hours 07/09/24 07/10/24 07/11/24 23:59 23:59 23:59 Intake Total 2429.17 / 3285.17 2747 / 2747 Balance 2429.17 / 3285.17 2747 / 2747 Medical Nutrition Assessment Dietitian: Malnutrition Criteria Met Start: 07/11/24 14:56 Freq: Status: Active Protocol: Document 07/11/24 14:56 SB (Rec: 07/11/24 14:57 SB [id number]) Nutrition Malnutrition Evidence of Malnutrition Exists Yes Malnutrition (severe): Acute Illness/Injury Evidenced By Suboptimal Energy Intake ( Severe),Weight Loss (Severe), Physical Changes (Severe) Clinical Problem Acute Disease or Injury Related Malnutrition Etiology severe malnutrition related to inadequate oral intake Signs/Symptoms as evidenced by PO meeting <50 % of estimated nutrition needs and 11% unintentional weight loss x 2 months, severe muscle wasting in clavicle region, and BMI 18.4. Status Active Problem Recommendation Dietitian Recommendations/Changes Recommend regular diet, as diet is advanced. Will order 120ml vanilla ensure plus high protein 4x daily with medpass. Will monitor weight, as available. Reviewed and approved by Yudy Webb RDN, [place]. Lab / Micro Data 07/11/24 06:40 07/11/24 06:40 Labs: Laboratory Results - last 24 hr 07/11/24 06:40: WBC 6.5, RBC 4.32, Hgb 12.3, Hct 37.3, MCV 86.3, MCH 28.5, MCHC 33.0, RDW Std Deviation 39.1, RDW Coeff of Stephany 12.3, Plt Count 227, MPV 10.1, Sodium 138, Potassium 3.3 L, Chloride 109 H, Carbon Dioxide 19.0 L, Anion Gap 9, BUN 7, Creatinine 0.55, Estim Creat Clear Calc 103.13, Est GFR (MDRD) Af Amer 151, Est GFR (MDRD) Non-Af 125, BUN/Creatinine Ratio 12.7, Glucose 74, Calcium 8.4 L, Total Bilirubin 0.50, AST 17, ALT 18, Alkaline Phosphatase 47, Total Protein 6.3 L, Albumin 3.1 L, Globulin 3.2, Albumin/Globulin Ratio 1.0 Micro: Microbiology 07/10/24 10:00 Stool C. difficile GDH Antigen & Toxins - Final Toxigenic C. difficile 07/10/24 10:00 Stool Clostridioides difficile (PCR) - Final Physical Exam Const alert, oriented x3 and no apparent distress General Appearance: cooperative and comfortable HEENT normocephalic, head/scalp atraumatic, hearing grossly normal bilaterally and nasal mucous membranes and turbinates normal Eyes PERRL, EOMs intact bilaterally and conjunctivae normal Neck full ROM Chest inspection of chest normal Resp normal respiratory effort, normal air movement, no use of accessory muscles and clear to auscultation bilaterally Cardio regular rate, regular rhythm, no murmurs and peripheral pulses 2+ throughout GI GI Narrative: Mild tenderness to palpation diffusely in lower abdomen. Abdomen otherwise soft and nondistended with normal bowel sounds. Back/Spine normal ROM Extremity normal to inspection, full ROM and no pedal edema Skin no rashes or lesions noted Neuro moves all extremities and no focal motor deficits Speech: speech normal Psych mental status grossly normal Assessment & Plan Assessment/Plan (1) Colitis: (2) C. difficile enteritis: (3) Underweight: PLAN: Plan Patient is a 48-year-old female who presented with worsening abdominal pain and diarrhea.She recently finished a course of vancomycin for acute C. difficile colitis secondary to antibiotics that she received as an outpatient. She has been on probiotics. She has not had any more antibiotics. As per whose with her at the bedside he says that her symptoms really never got better and she did complain of some cramping and diarrhea. Her enteric stool panel, CBC, lactoferrin is pending. She will need to get fecal elastase and fecal calprotectin along with labs for inflammatory bowel disease. That is also on the differential diagnosis along with ischemic colitis. She is okay with the plan. She would likely need to be on antibiotics for the next 6 weeks. After that is completed she will likely need monoclonal antibody for toxin A. 07/11/2024-patient's mother is at the bedside. She is still having a lot of tenesmus and has had 3 bowel movements today she denies any bloating. She has been afebrile. I will add Flagyl 500 mg IV every 6 hours and vancomycin enemas. I will also add cholestyramine twice a day.. Charges/Coding Visit Charges Inpatient E&M: 83437 Subs Hosp L3
[2024-07-11] MEDS: metroNIDAZOLE 500 MG/100 ML BAG 100 MG IV ×2 (17:46→21:43)
[2024-07-11] MEDS: Vancomycin HCl 500 MG, Sodium Chloride Irrig Solution 90 ML RC (18:17)
[2024-07-11] MEDS: proCHLORPERazine 10 MG/2 ML Vial 5 MG IV (21:43)
[2024-07-12] VITALS (7 sets, daily range): BP systolic 106–121; BP diastolic 68–84; PULSE 72–90; RESP 16–18; TEMP 36.6–37.2; O2SAT 97–100
[2024-07-12] MEDS: metroNIDAZOLE 500 MG/100 ML BAG 100 MG IV ×2 (06:11→13:43)
[2024-07-12] MEDS: Vancomycin 125 MG/5 ML Susp PO.SYRINGE PO ×3 (06:11→18:21)
[2024-07-12] MEDS: 0.9% Saline Lock 10 ML Syringe IV ×3 (06:11→18:12)
[2024-07-12] MEDS: Dicyclomine 10 MG Capsule 20 MG PO ×3 (06:11→15:45)
[2024-07-12 07:25] LABS: Absolute Lymphocyte Count 1.13 X10^3/uL (0.83-4.51); Basophil# 0.07 X10^3/uL; Basophil% 1.4 % (0-1); Eosinophil# 0.25 X10^3/uL; Eosinophils% 4.9 % (0-5); Hematocrit 37.1 % (37-47); Hemoglobin 12.5 g/dL (12.0-15.0); Lymphocyte # 1.13 X10^3/ul (0.83-4.51); Lymphocyte % 22.1 % (19-41); Mean Corp Hgb Conc 33.7 g/dL (32-36); Mean Corpuscular Hgb 28.9 pg (27.0-32.0); Mean Corpuscular Volume 85.9 fL (81-99); Mean Platelet Vol. 10.9 fl (6.2-12.0); Monocyte# 0.67 X10^3/uL; Monocyte% 13.1 % (0-10); NRBC Flagged by Analyzer 0 % (0-5); Neutrophil # 2.98 X10^3/uL (2.7-7.7); Neutrophil % 58.1 % (47-70); Platelet Count 241 K/mm3 (150-450); RBC Distribution Width CV 12.3 % (11.6-14.6); RBC Distribution Width SD 38.9 fl (35.1-43.9); Red Blood Count 4.32 M/mm3 (4.2-5.4); White Blood Count 5.1 K/mm3 (4.4-11.0)
[2024-07-12 07:48] LABS: Anion Gap 10 (5-15); BUN 3 mg/dL (7-18); BUN/Creat Ratio 5.1 RATIO (10-20); Calcium,Total 8.6 mg/dL (8.5-10.1); Chloride 110 mmol/L (98-107); Creatinine, Serum 0.59 mg/dL (0.55-1.02); EST Glomerular Filtration Rate 115 mL/min (>60); Est Glom Filt Rate - Afr Amer 139 mL/min (>60); Estimated Creatinine Clearance 96.14 ml/min; Glucose 67 mg/dL (74-106); Potassium 3.1 mmol/L (3.5-5.1); Sodium Level 140 mmol/L (136-145)
[2024-07-12] MEDS: Cholestyramine/Sucrose 4 GM/PACKET PO ×2 (07:55→16:22)
[2024-07-12] MEDS: Enoxaparin 40 MG/0.4 ML Syringe SC (10:05)
[2024-07-12] MEDS: Topiramate 100 MG Tablet PO (10:05)
[2024-07-12] MEDS: Spironolactone 50 MG Tablet PO (10:06)
[2024-07-12] MEDS: Ondansetron 4 MG/2 ML Vial IV (13:43)
--- NOTE | 2024-07-12 15:21 | PN.HOSP_ITS ---
Reason for Visit Reason for Visit: Diagnoses Enterocolitis due to Clostridium difficile, not specified as recurrent (07/10/24) Noninfective gastroenteritis and colitis, unspecified (07/10/24) Underweight (07/10/24) Objective Data Objective Data Vital Signs: Vital Signs Temp Pulse Resp BP Pulse Ox O2 Del Method 98.8 F 80 18 112/74 97 Room Air 07/12/24 08:00 07/12/24 08:03 07/12/24 08:00 07/12/24 08:00 07/12/24 08:35 07/12/24 08:35 Oxygen Delivery Method Room Air Weight: 113 lb 14.394 oz Body Mass Index (BMI) 18.3 Intake & Output: Intake and Output for Last 24 Hours 07/10/24 07/11/24 07/12/24 23:59 23:59 23:59 Intake Total 2429.17 / 3285.17 3844.5 / 3844.5 1800 / 1800 Balance 2429.17 / 3285.17 3844.5 / 3844.5 1800 / 1800 Medical Nutrition Assessment Dietitian: Malnutrition Criteria Met Start: 07/11/24 14:56 Freq: Status: Active Protocol: Document 07/11/24 14:56 SB (Rec: 07/11/24 14:57 SB [id number]) Nutrition Malnutrition Evidence of Malnutrition Exists Yes Malnutrition (severe): Acute Illness/Injury Evidenced By Suboptimal Energy Intake ( Severe),Weight Loss (Severe), Physical Changes (Severe) Clinical Problem Acute Disease or Injury Related Malnutrition Etiology severe malnutrition related to inadequate oral intake Signs/Symptoms as evidenced by PO meeting <50 % of estimated nutrition needs and 11% unintentional weight loss x 2 months, severe muscle wasting in clavicle region, and BMI 18.4. Status Active Problem Recommendation Dietitian Recommendations/Changes Recommend regular diet, as diet is advanced. Will order 120ml vanilla ensure plus high protein 4x daily with medpass. Will monitor weight, as available. Reviewed and approved by Yudy Webb RDN, [place]. Lab / Micro Data 07/12/24 05:17 07/12/24 05:17 Labs: Laboratory Results - last 24 hr 07/12/24 05:17: WBC 5.1, RBC 4.32, Hgb 12.5, Hct 37.1, MCV 85.9, MCH 28.9, MCHC 33.7, RDW Std Deviation 38.9, RDW Coeff of Stephany 12.3, Plt Count 241, MPV 10.9, Immature Gran % (Auto) 0.400, Neut % (Auto) 58.1, Lymph % (Auto) 22.1, [place] % (Auto) 13.1 H, Eos % (Auto) 4.9, Baso % (Auto) 1.4 H, Absolute Neuts (auto) 3.0, Absolute Lymphs (auto) 1.13, Nucleated RBC % 0, Sodium 140, Potassium 3.1 L, C hloride 110 H, Carbon Dioxide 20.0 L, Anion Gap 10, BUN 3 L, Creatinine 0.59, Estim Creat Clear Calc 96.14, Est GFR (MDRD) Af Amer 139, Est GFR (MDRD) Non-Af 115, BUN/Creatinine Ratio 5.1 L, Glucose 67 L, Calcium 8.6 Micro: Microbiology 07/11/24 17:30 Stool Stool Lactoferrin - Final 07/11/24 17:30 Stool Enteric Bacteriology - Final 07/10/24 10:00 Stool C. difficile GDH Antigen & Toxins - Final Toxigenic C. difficile 07/10/24 10:00 Stool Clostridioides difficile (PCR) - Final Physical Exam Narrative Patient is still has abdominal cramps, urgency and tenesmus. Denies rectal pain. Her bowel movement is semisolid with mucus but denies blood. Physical exam General: Alert, Oriented x3, Cooperative fatigue. HEENT: Atraumatic, PERRLA, EOMI, Normocephalic Oral: Oral mucosa dry no Gingival or Mucosal Lesions/ Ulcerations Neck: Supple, No JVD, Negative Carotid Bruits Chest wall/Lungs: Air entry diminished in bilateral lung bases. No crepitation/rhonchi Cardiovascular: Regular rate, Regular Rhythm, Normal S1, Normal S2, No M/G/R Abdomen: Bowel Sounds Present, Soft, no tenderness. Nondistended. : No dysuria. No renal angle tenderness. No suprapubic tenderness. Extremities: No edema, Capillary Refill Less than 3 Seconds Skin: No rashes, No breakdown Musculoskeletal: No Tenderness to Palpation of Joints or Extremities Neurological: Cranial nerves II-XII grossly intact, DTR 2+/4. No acute focal neurological deficit. Psych/Mental Status: Flat affect Assessment & Plan Assessment/Plan (1) Colitis: (2) C. difficile enteritis: (3) Underweight: PLAN: Plan Patient is a 48-year-old female who presented [facility] ED on 07/10/2024 with worsening abdominal pain and diarrhea. The patient has not drink water and food since last . Recently finished treatment for C. difficile. Weight loss more than 10 pounds. 1. Diffuse colitis due to first recurrence of C. difficile colitis after improvement on 10 days of index C. difficile colitis: Admitted under inpatient status. GI consulted. CT abdomen pelvis imaging individually reviewed which showed diffuse colitis, worst in the ascending and transverse colon. C. difficile toxin was positive on 06/24 (in [facility] records). Completed 10-day course of vancomycin without much improvement on 07/05. Patient afebrile, hemodynamically stable, normal WBC count, normal creatinine so no concern for severe C. difficile infection. Although preferred therapeutic agent is fidaxomicin but unfortunately we do not have on formulary. Patient is on pulse and taper vancomycin therapy. Discussed with ID. Vancomycin 125 mg p.o. for 2 weeks then 125 mg twice daily for 7 days, 125 mg daily for 7 days then 125 mg every other day for 2 to 4 weeks. 07/12: Transitional soft diet recommended. Patient still has significant abdominal cramps, tenesmus and defecation urgency. Was evaluated by customs compliance specialist and Flagyl and vancomycin enema added. Cholestyramine added. 2. Mild hypokalemia ? Potassium 3.4 on admit. Mag and Phos normal. Suspect due to GI losses. Replete as needed. 07/11 repeat potassium 3.3. Serum magnesium and phosphorus level normal. 3. Underweight BMI ? BMI 18.4 on admit. Patient reports being thin at baseline but has not been eating much over the past few weeks due to the C. difficile infection. Nutrition consulted. 4. History of migraines Continue home topiramate. 5. History of acne ? Continue home spironolactone. DVT prophylaxis: Lovenox CODE STATUS: Full code, verified Charges/Coding Visit Charges Inpatient E&M: 69966 Subs Hosp L2
[2024-07-12] MEDS: Lactobacillis Acidophilus 1 CAP PO ×2 (15:45→22:47)
[2024-07-12] MEDS: Potassium Chloride 10mEq/100mL 10 MEQ/100 ML IV.SOLN. 100 MEQ IV BOLUS (16:22)
[2024-07-12] MEDS: 0.9% Normal Saline (250mL Bag) 250 ML 15 ML IV (16:26)
--- NOTE | 2024-07-12 16:33 | PN.GI_ITS ---
Subjective Subjective And patient is still not able to eat anything today. She still having cramping and abdominal pain along with nausea when she introduces any liquids into her diet. Her weight is the same today. Objective Data Objective Data Vital Signs: Vital Signs Temp Pulse Resp BP Pulse Ox O2 Del Method 98.6 F 90 18 121/84 H 100 Room Air 07/12/24 15:47 07/12/24 15:50 07/12/24 15:47 07/12/24 15:47 07/12/24 15:47 07/12/24 15:50 Oxygen Delivery Method Room Air Weight: 113 lb 14.394 oz Body Mass Index (BMI) 18.3 Intake & Output: Intake and Output for Last 24 Hours 07/10/24 07/11/24 07/12/24 23:59 23:59 23:59 Intake Total 2429.17 / 3285.17 3844.5 / 3844.5 1800 / 1800 Balance 2429.17 / 3285.17 3844.5 / 3844.5 1800 / 1800 Medical Nutrition Assessment Dietitian: Malnutrition Criteria Met Start: 07/11/24 14:56 Freq: Status: Active Protocol: Document 07/11/24 14:56 SB (Rec: 07/11/24 14:57 SB [id number]) Nutrition Malnutrition Evidence of Malnutrition Exists Yes Malnutrition (severe): Acute Illness/Injury Evidenced By Suboptimal Energy Intake ( Severe),Weight Loss (Severe), Physical Changes (Severe) Clinical Problem Acute Disease or Injury Related Malnutrition Etiology severe malnutrition related to inadequate oral intake Signs/Symptoms as evidenced by PO meeting <50 % of estimated nutrition needs and 11% unintentional weight loss x 2 months, severe muscle wasting in clavicle region, and BMI 18.4. Status Active Problem Recommendation Dietitian Recommendations/Changes Recommend regular diet, as diet is advanced. Will order 120ml vanilla ensure plus high protein 4x daily with Marfeelpass. Will monitor weight, as available. Reviewed and approved by Yudy Webb RDN, [place]. Lab / Micro Data 07/12/24 05:17 07/12/24 05:17 Labs: Laboratory Results - last 24 hr 07/12/24 05:17: WBC 5.1, RBC 4.32, Hgb 12.5, Hct 37.1, MCV 85.9, MCH 28.9, MCHC 33.7, RDW Std Deviation 38.9, RDW Coeff of Stephany 12.3, Plt Count 241, MPV 10.9, Immature Gran % (Auto) 0.400, Neut % (Auto) 58.1, Lymph % (Auto) 22.1, [place] % (Auto) 13.1 H, Eos % (Auto) 4.9, Baso % (Auto) 1.4 H, Absolute Neuts (auto) 3.0, Absolute Lymphs (auto) 1.13, Nucleated RBC % 0, Sodium 140, Potassium 3.1 L, C hloride 110 H, Carbon Dioxide 20.0 L, Anion Gap 10, BUN 3 L, Creatinine 0.59, Estim Creat Clear Calc 96.14, Est GFR (MDRD) Af Amer 139, Est GFR (MDRD) Non-Af 115, BUN/Creatinine Ratio 5.1 L, Glucose 67 L, Calcium 8.6 Micro: Microbiology 07/11/24 17:30 Stool Stool Lactoferrin - Final 07/11/24 17:30 Stool Enteric Bacteriology - Final 07/10/24 10:00 Stool C. difficile GDH Antigen & Toxins - Final Toxigenic C. difficile 07/10/24 10:00 Stool Clostridioides difficile (PCR) - Final Physical Exam Const alert, oriented x3 and no apparent distress General Appearance: cooperative and comfortable HEENT normocephalic, head/scalp atraumatic, hearing grossly normal bilaterally and nasal mucous membranes and turbinates normal Eyes PERRL, EOMs intact bilaterally and conjunctivae normal Neck full ROM Chest inspection of chest normal Resp normal respiratory effort, normal air movement, no use of accessory muscles and clear to auscultation bilaterally Cardio regular rate, regular rhythm, no murmurs and peripheral pulses 2+ throughout GI GI Narrative: Mild tenderness to palpation diffusely in lower abdomen. Abdomen otherwise soft and nondistended with normal bowel sounds. Back/Spine normal ROM Extremity normal to inspection, full ROM and no pedal edema Skin no rashes or lesions noted Neuro moves all extremities and no focal motor deficits Speech: speech normal Psych mental status grossly normal Assessment & Plan Assessment/Plan (1) Colitis: (2) C. difficile enteritis: (3) Underweight: PLAN: Plan Patient is a 48-year-old female who presented with worsening abdominal pain and diarrhea.She recently finished a course of vancomycin for acute C. difficile colitis secondary to antibiotics that she received as an outpatient. She has been on probiotics. She has not had any more antibiotics. As per whose with her at the bedside he says that her symptoms really never got better and she did complain of some cramping and diarrhea. Her enteric stool panel, CBC, lactoferrin is pending. She will need to get fecal elastase and fecal calprotectin along with labs for inflammatory bowel disease. That is also on the differential diagnosis along with ischemic colitis. She is okay with the plan. She would likely need to be on antibiotics for the next 6 weeks. After that is completed she will likely need monoclonal antibody for toxin A. 07/11/2024-patient's mother is at the bedside. She is still having a lot of tenesmus and has had 3 bowel movements today she denies any bloating. She has been afebrile. I will add Flagyl 500 mg IV every 6 hours and vancomycin enemas. I will also add cholestyramine twice a day. 07/12/2024-patient says she feels about the same. She was started on Flagyl along with vancomycin yesterday. She was able to hold the vancomycin enema for about 20 to 25 minutes before having to evacuate. I will add scheduled Reglan therapy and she should try to drink Ensure clear 3 times a day. Charges/Coding Visit Charges Inpatient E&M: 77383 [facility] Hosp L3
[2024-07-12] MEDS: Metoclopramide 10 MG/2 ML Vial 5 MG IV (18:11)
[2024-07-12] MEDS: Potassium Chloride 10mEq/100mL 10 MEQ/100 ML IV.SOLN. 60 MEQ IV BOLUS (18:12)
--- NOTE | 2024-07-12 18:50 | NURSING ---
spoke at length with pt and spouse, he asked what is the next step, nurse discussed the option of dubof tube, which Dr Peres had already suggested to pt.this morning. Spouse is in favor of dubhof tube, pt is thinking about it. Spouse also asked if they are at the right facility (not in a bad way), honestly seeking the best for his . Both of these were texted to Dr. Peres.
[2024-07-12] MEDS: Acetaminophen 325 MG Tablet 650 MG PO (20:38)
[2024-07-12] MEDS: proCHLORPERazine 10 MG/2 ML Vial 5 MG IV (20:38)
[2024-07-12] MEDS: MELATONIN 10 MG TABLET PO (22:47)
[2024-07-13] MEDS: Metoclopramide 10 MG/2 ML Vial 5 MG IV ×5 (01:10→23:32)
[2024-07-13] MEDS: Vancomycin 125 MG/5 ML Susp PO.SYRINGE PO ×4 (01:10→23:34)
[2024-07-13 01:15] VITALS: BP 107/88; PULSE 90; RESP 16; TEMP 36.6; O2SAT 99
[2024-07-13 06:51] LABS: Absolute Lymphocyte Count 1.16 X10^3/uL (0.83-4.51); Absolute Neutrophil Count 2.7 X10^3/uL (2.0-7.7); Basophil# 0.08 X10^3/uL; Basophil% 1.7 % (0-1); Eosinophil# 0.17 X10^3/uL; Eosinophils% 3.6 % (0-5); Hematocrit 35.8 % (37-47); Hemoglobin 12.1 g/dL (12.0-15.0); Lymphocyte # 1.16 X10^3/ul (0.83-4.51); Lymphocyte % 24.8 % (19-41); Mean Corp Hgb Conc 33.8 g/dL (32-36); Mean Corpuscular Hgb 28.5 pg (27.0-32.0); Mean Corpuscular Volume 84.2 fL (81-99); Mean Platelet Vol. 9.9 fl (6.2-12.0); Monocyte# 0.58 X10^3/uL; Monocyte% 12.4 % (0-10); NRBC Flagged by Analyzer 0 % (0-5); Neutrophil # 2.65 X10^3/uL (2.7-7.7); Neutrophil % 56.6 % (47-70); Platelet Count 263 K/mm3 (150-450); RBC Distribution Width CV 12.4 % (11.6-14.6); RBC Distribution Width SD 37.5 fl (35.1-43.9); Red Blood Count 4.25 M/mm3 (4.2-5.4); White Blood Count 4.7 K/mm3 (4.4-11.0)
[2024-07-13] MEDS: Dicyclomine 10 MG Capsule 20 MG PO ×3 (07:06→17:40)
[2024-07-13] MEDS: Lactobacillis Acidophilus 1 CAP PO ×2 (07:06→22:20)
[2024-07-13 07:23] LABS: Anion Gap 7 (5-15); BUN 2 mg/dL (7-18); BUN/Creat Ratio 3.2 RATIO (10-20); Calcium,Total 8.7 mg/dL (8.5-10.1); Chloride 112 mmol/L (98-107); Creatinine, Serum 0.62 mg/dL (0.55-1.02); EST Glomerular Filtration Rate 109 mL/min (>60); Est Glom Filt Rate - Afr Amer 131 mL/min (>60); Estimated Creatinine Clearance 91.49 ml/min; Glucose 85 mg/dL (74-106); Magnesium 1.9 mg/dL (1.6-2.6); Potassium 3.2 mmol/L (3.5-5.1); Sodium Level 140 mmol/L (136-145)
[2024-07-13 07:31] LABS: Phosphorus 3.6 mg/dL (2.5-4.9)
[2024-07-13 08:00] VITALS: BP 119/80; PULSE 78; RESP 16; TEMP 36.8; O2SAT 100
[2024-07-13] MEDS: Spironolactone 50 MG Tablet PO (10:47)
[2024-07-13] MEDS: Enoxaparin 40 MG/0.4 ML Syringe SC (10:47)
[2024-07-13] MEDS: Topiramate 100 MG Tablet PO (10:48)
[2024-07-13] MEDS: 0.9% Saline Lock 10 ML Syringe IV ×2 (10:56→23:34)
[2024-07-13 10:59] VITALS: PULSE 78
[2024-07-13] MEDS: Cholestyramine/Sucrose 4 GM/PACKET PO (12:38)
--- NOTE | 2024-07-13 17:07 | PN.HOSP_ITS ---
Reason for Visit Reason for Visit: Diagnoses Enterocolitis due to Clostridium difficile, not specified as recurrent (07/10/24) Noninfective gastroenteritis and colitis, unspecified (07/10/24) Underweight (07/10/24) Objective Data Objective Data Vital Signs: Vital Signs Temp Pulse Resp BP Pulse Ox O2 Del Method 98.2 F 78 16 119/80 100 Room Air 07/13/24 08:00 07/13/24 10:59 07/13/24 08:00 07/13/24 08:00 07/13/24 08:00 07/13/24 10:59 Oxygen Delivery Method Room Air Weight: 113 lb 14.394 oz Body Mass Index (BMI) 18.3 Intake & Output: Intake and Output for Last 24 Hours 07/11/24 07/12/24 07/13/24 23:59 23:59 23:59 Intake Total 3844.5 / 3844.5 550 / 550 Balance 3844.5 / 3844.5 550 / 550 Medical Nutrition Assessment Dietitian: Malnutrition Criteria Met Start: 07/11/24 14:56 Freq: Status: Active Protocol: Document 07/13/24 14:39 SB (Rec: 07/13/24 14:39 SB [id number]) Nutrition Malnutrition Evidence of Malnutrition Exists Yes Malnutrition (severe): Acute Illness/Injury Evidenced By Suboptimal Energy Intake ( Severe),Weight Loss (Severe), Physical Changes (Severe) Clinical Problem Acute Disease or Injury Related Malnutrition Etiology severe malnutrition related to inadequate oral intake Signs/Symptoms as evidenced by PO meeting <50 % of estimated nutrition needs and 11% unintentional weight loss x 2 months, severe muscle wasting in clavicle region, and BMI 18.4. Status Active Problem Recommendation Dietitian Recommendations/Changes Recommend regular diet, as diet is advanced. Will d/c 120ml vanilla ensure plus high protein 4x daily with medpass d/t pr refusal. Will order 240ml ensure clear TID with meals- likes dunn flavor. Will monitor weight, as available. Reviewed and approved by Yanira Campbell, MS, RD, LD. Lab / Micro Data 07/13/24 06:32 07/13/24 06:32 Labs: Laboratory Results - last 24 hr 07/13/24 06:32: WBC 4.7, RBC 4.25, Hgb 12.1, Hct 35.8 L, MCV 84.2, MCH 28.5, MCHC 33.8, RDW Std Deviation 37.5, RDW Coeff of Stephany 12.4, Plt Count 263, MPV 9.9, Immature Gran % (Auto) 0.900, Neut % (Auto) 56.6, Lymph % (Auto) 24.8, [place] % (Auto) 12.4 H, Eos % (Auto) 3.6, Baso % (Auto) 1.7 H, Absolute Neuts (auto) 2.7, Absolute Lymphs (auto) 1.16, Nucleated RBC % 0, Sodium 140, Potassium 3.2 L, Chloride 112 H, Carbon Dioxide 21.0, Anion Gap 7, B UN 2 L, Creatinine 0.62, Estim Creat Clear Calc 91.49, Est GFR (MDRD) Af Amer 131, Est GFR (MDRD) Non-Af 109, BUN/Creatinine Ratio 3.2 L, Glucose 85, Calcium 8.7, Phosphorus 3.6, Magnesium 1.9 Micro: Microbiology 07/12/24 16:20 Mucosa - Nose Coronavirus COVID-19 PCR - Final 07/11/24 17:30 Stool Stool Lactoferrin - Final 07/11/24 17:30 Stool Enteric Bacteriology - Final 07/10/24 10:00 Stool C. difficile GDH Antigen & Toxins - Final Toxigenic C. difficile 07/10/24 10:00 Stool Clostridioides difficile (PCR) - Final Physical Exam Narrative Seen and examined. Patient's present in the room. Discussed with him. Patient is still complaining of diarrhea about 6 times in last 24 hours. Tenesmus and stool urgency is better. Abdominal cramps has resolved. No blood. Physical exam General: Alert, Oriented x3, Cooperative fatigue. HEENT: Atraumatic, PERRLA, EOMI, Normocephalic Oral: Oral mucosa moist no Gingival or Mucosal Lesions/ Ulcerations Neck: Supple, No JVD, Negative Carotid Bruits Chest wall/Lungs: Air entry diminished in bilateral lung bases. No crepitation/rhonchi Cardiovascular: Regular rate, Regular Rhythm, Normal S1, Normal S2, No M/G/R Abdomen: Bowel Sounds Present, Soft, no tenderness. Nondistended. : No dysuria. No renal angle tenderness. No suprapubic tenderness. Extremities: No edema, Capillary Refill Less than 3 Seconds Skin: No rashes, No breakdown Musculoskeletal: No Tenderness to Palpation of Joints or Extremities Neurological: Cranial nerves II-XII grossly intact, DTR 2+/4. No acute focal neurological deficit. Psych/Mental Status: Flat affect Assessment & Plan Assessment/Plan (1) Colitis: (2) C. difficile enteritis: (3) Underweight: PLAN: Plan Patient is a 48-year-old female who presented [facility] ED on 07/10/2024 with worsening abdominal pain and diarrhea. The patient has not drink water and food since last . Recently finished treatment for C. difficile. Weight loss more than 10 pounds. 1. Diffuse colitis due to first recurrence of C. difficile colitis after improvement on 10 days of index C. difficile colitis: Admitted under inpatient status. GI consulted. CT abdomen pelvis imaging individually reviewed which showed diffuse colitis, worst in the ascending and transverse colon. C. difficile toxin was positive on 06/24 (in [facility] records). Completed 10-day course of vancomycin without much improvement on 07/05. Patient afebrile, hemodynamically stable, normal WBC count, normal creatinine so no concern for severe C. difficile infection. Although preferred therapeutic agent is fidaxomicin but unfortunately we do not have on formulary. Patient is on pulse and taper vancomycin therapy. Discussed with ID. Vancomycin 125 mg p.o. for 2 weeks then 125 mg twice daily for 7 days, 125 mg daily for 7 days then 125 mg every other day for 2 to 4 weeks. 07/12: Transitional soft diet recommended. Patient still has significant abdominal cramps, tenesmus and defecation urgency. Was evaluated by card punching machine operator and Flagyl and vancomycin enema added. Cholestyramine added. 07/13: Continue vancomycin. Flagyl was discontinued yesterday as patient has perioral numbness/tingling. Continue vancomycin oral. Dr. Peres prescribed Dificid 200 mg twice daily for 10 days as an alternative treatment for vancomycin as vancomycin oral will be prolonged with taper and Dificid might be more effective option. Patient states she still has diarrhea I want to stay. Dificid will need prior authorization as not covered by her insurance 2. Mild hypokalemia ? Potassium 3.4 on admit. Mag and Phos normal. Suspect due to GI losses. Replete as needed. 07/11 repeat potassium 3.3. Serum magnesium and phosphorus level normal. 07/12 is still hypokalemia even on spironolactone for acne. Continue potassium replacement. Serum magnesium and phosphorus level normal 3. Underweight BMI ? BMI 18.4 on admit. Patient reports being thin at baseline but has not been eating much over the past few weeks due to the C. difficile infection. Nutrition consulted. 4. History of migraines Continue home topiramate. 5. History of acne ? Continue home spironolactone. DVT prophylaxis: Lovenox CODE STATUS: Full code, verified Charges/Coding Visit Charges Inpatient E&M: 70528 Subs Hosp L2
[2024-07-13] MEDS: Potassium Chloride Oral Tablet 20 MEQ 40 MEQ PO (17:39)
--- NOTE | 2024-07-13 17:48 | EX.PCM.PN.GI ---
Subjective Subjective Patient is still having abdominal pain with nausea. She was only able to eat a little bit of Jell-O today. She only drank about half a carton of Ensure. Objective Data Objective Data Vital Signs: Vital Signs Temp Pulse Resp BP Pulse Ox O2 Del Method 98.2 F 78 16 119/80 100 Room Air 07/13/24 08:00 07/13/24 10:59 07/13/24 08:00 07/13/24 08:00 07/13/24 08:00 07/13/24 10:59 Oxygen Delivery Method Room Air Weight: 113 lb 14.394 oz Body Mass Index (BMI) 18.3 Intake & Output: Intake and Output for Last 24 Hours 07/11/24 07/12/24 07/13/24 23:59 23:59 23:59 Intake Total 3844.5 / 3844.5 550 / 550 Balance 3844.5 / 3844.5 550 / 550 Medical Nutrition Assessment Dietitian: Malnutrition Criteria Met Start: 07/11/24 14:56 Freq: Status: Active Protocol: Document 07/13/24 14:39 SB (Rec: 07/13/24 14:39 SB [id number]) Nutrition Malnutrition Evidence of Malnutrition Exists Yes Malnutrition (severe): Acute Illness/Injury Evidenced By Suboptimal Energy Intake ( Severe),Weight Loss (Severe), Physical Changes (Severe) Clinical Problem Acute Disease or Injury Related Malnutrition Etiology severe malnutrition related to inadequate oral intake Signs/Symptoms as evidenced by PO meeting <50 % of estimated nutrition needs and 11% unintentional weight loss x 2 months, severe muscle wasting in clavicle region, and BMI 18.4. Status Active Problem Recommendation Dietitian Recommendations/Changes Recommend regular diet, as diet is advanced. Will d/c 120ml vanilla ensure plus high protein 4x daily with medpass d/t pr refusal. Will order 240ml ensure clear TID with meals- likes dunn flavor. Will monitor weight, as available. Reviewed and approved by Yanira Campbell MS, RD, LD. Lab / Micro Data 07/13/24 06:32 07/13/24 06:32 Labs: Laboratory Results - last 24 hr 07/13/24 06:32: WBC 4.7, RBC 4.25, Hgb 12.1, Hct 35.8 L, MCV 84.2, MCH 28.5, MCHC 33.8, RDW Std Deviation 37.5, RDW Coeff of Stephany 12.4, Plt Count 263, MPV 9.9, Immature Gran % (Auto) 0.900, Neut % (Auto) 56.6, Lymph % (Auto) 24.8, [place] % (Auto) 12.4 H, Eos % (Auto) 3.6, Baso % (Auto) 1.7 H, Absolute Neuts (auto) 2.7, Absolute Lymphs (auto) 1.16, Nucleated RBC % 0, Sodium 140, Potassium 3.2 L, Chloride 112 H, Carbon Dioxide 21.0, Anion Gap 7, BUN 2 L, Creatinine 0.62, Estim Creat Clear Calc 91.49, Est GFR (MDRD) Af Amer 131, Est GFR (MDRD) Non-Af 109, BUN/Creatinine Ratio 3.2 L, Glucose 85, Calcium 8.7, Phosphorus 3.6, Magnesium 1.9 Micro: Microbiology 07/12/24 16:20 Mucosa - Nose Coronavirus COVID-19 PCR - Final 07/11/24 17:30 Stool Stool Lactoferrin - Final 07/11/24 17:30 Stool Enteric Bacteriology - Final 07/10/24 10:00 Stool C. difficile GDH Antigen & Toxins - Final Toxigenic C. difficile 07/10/24 10:00 Stool Clostridioides difficile (PCR) - Final Physical Exam Const alert, oriented x3 and no apparent distress General Appearance: cooperative and comfortable HEENT normocephalic, head/scalp atraumatic, hearing grossly normal bilaterally and nasal mucous membranes and turbinates normal Eyes PERRL, EOMs intact bilaterally and conjunctivae normal Neck full ROM Chest inspection of chest normal Resp normal respiratory effort, normal air movement, no use of accessory muscles and clear to auscultation bilaterally Cardio regular rate, regular rhythm, no murmurs and peripheral pulses 2+ throughout GI GI Narrative: Mild tenderness to palpation diffusely in lower abdomen. Abdomen otherwise soft and nondistended with normal bowel sounds. Back/Spine normal ROM Extremity normal to inspection, full ROM and no pedal edema Skin no rashes or lesions noted Neuro moves all extremities and no focal motor deficits Speech: speech normal Psych mental status grossly normal Assessment & Plan Assessment/Plan (1) Colitis: (2) C. difficile enteritis: (3) Underweight: PLAN: Plan Patient is a 48-year-old female who presented with worsening abdominal pain and diarrhea.She recently finished a course of vancomycin for acute C. difficile colitis secondary to antibiotics that she received as an outpatient. She has been on probiotics. She has not had any more antibiotics. As per whose with her at the bedside he says that her symptoms really never got better and she did complain of some cramping and diarrhea. Her enteric stool panel, CBC, lactoferrin is pending. She will need to get fecal elastase and fecal calprotectin along with labs for inflammatory bowel disease. That is also on the differential diagnosis along with ischemic colitis. She is okay with the plan. She would likely need to be on antibiotics for the next 6 weeks. After that is completed she will likely need monoclonal antibody for toxin A. 07/11/2024-patient's mother is at the bedside. She is still having a lot of tenesmus and has had 3 bowel movements today she denies any bloating. She has been afebrile. I will add Flagyl 500 mg IV every 6 hours and vancomycin enemas. I will also add cholestyramine twice a day. 07/12/2024-patient says she feels about the same. She was started on Flagyl along with vancomycin yesterday. She was able to hold the vancomycin enema for about 20 to 25 minutes before having to evacuate. I will add scheduled Reglan therapy and she should try to drink Ensure clear 3 times a day. 07/13/2024-patient had 5-6 bowel movements today. There was no blood in the bowel movements. She agreed to wear a scopolamine patch and to take benzodiazepine to help her nausea as that is one of the chief symptoms that she is experiencing. She says that if she does not get 50% better with adjustment in her regimen then she will agree to have a Dobbhoff tube. Charges/Coding Visit Charges Inpatient E&M: [address] [facility] Hosp L3
[2024-07-13 17:52] VITALS: BP 147/88; PULSE 105; RESP 18; TEMP 37.2; O2SAT 99
[2024-07-13] MEDS: Morphine 2 MG/ML Syringe 1 MG IV ×2 (19:55→23:33)
[2024-07-13] MEDS: LORazepam 2 MG/ML Syringe 0.25 MG IV ×2 (19:57→23:32)
[2024-07-13] MEDS: Scopolamine 1mg/72hr Patch 1 PATCH TD (20:12)
[2024-07-13 21:30] VITALS: BP 111/77; PULSE 83; RESP 15; TEMP 36.5; O2SAT 100
[2024-07-13 23:48] VITALS: BP 107/85; PULSE 82; RESP 16; TEMP 36.7; O2SAT 100
[2024-07-14 05:31] VITALS: BP 103/73; PULSE 87; RESP 18; TEMP 36.1; O2SAT 99
[2024-07-14] MEDS: LORazepam 2 MG/ML Syringe 0.25 MG IV ×3 (05:35→17:13)
[2024-07-14] MEDS: Dicyclomine 10 MG Capsule 20 MG PO ×3 (05:35→17:11)
[2024-07-14] MEDS: Vancomycin 125 MG/5 ML Susp PO.SYRINGE PO ×3 (05:35→17:13)
[2024-07-14] MEDS: Lactobacillis Acidophilus 1 CAP PO ×2 (05:35→13:13)
[2024-07-14] MEDS: Cholestyramine/Sucrose 4 GM/PACKET PO (05:35)
[2024-07-14] MEDS: Morphine 2 MG/ML Syringe 1 MG IV ×3 (05:36→17:14)
[2024-07-14] MEDS: Metoclopramide 10 MG/2 ML Vial 5 MG IV ×3 (05:36→17:14)
[2024-07-14 07:16] LABS: Absolute Lymphocyte Count 1.58 X10^3/uL (0.83-4.51); Absolute Neutrophil Count 3.4 X10^3/uL (2.0-7.7); Basophil# 0.07 X10^3/uL; Basophil% 1.2 % (0-1); Eosinophil# 0.31 X10^3/uL; Eosinophils% 5.2 % (0-5); Hematocrit 41.5 % (37-47); Hemoglobin 13.9 g/dL (12.0-15.0); Lymphocyte # 1.58 X10^3/ul (0.83-4.51); Lymphocyte % 26.7 % (19-41); Mean Corp Hgb Conc 33.5 g/dL (32-36); Mean Corpuscular Hgb 28.7 pg (27.0-32.0); Mean Corpuscular Volume 85.7 fL (81-99); Mean Platelet Vol. 9.8 fl (6.2-12.0); Monocyte# 0.58 X10^3/uL; Monocyte% 9.8 % (0-10); NRBC Flagged by Analyzer 0 % (0-5); Neutrophil # 3.35 X10^3/uL (2.7-7.7); Neutrophil % 56.6 % (47-70); Platelet Count 297 K/mm3 (150-450); RBC Distribution Width CV 12.6 % (11.6-14.6); RBC Distribution Width SD 39.2 fl (35.1-43.9); Red Blood Count 4.84 M/mm3 (4.2-5.4); White Blood Count 5.9 K/mm3 (4.4-11.0)
[2024-07-14 07:45] LABS: Anion Gap 7 (5-15); BUN 3 mg/dL (7-18); BUN/Creat Ratio 3.8 RATIO (10-20); Calcium,Total 9.1 mg/dL (8.5-10.1); Chloride 113 mmol/L (98-107); EST Glomerular Filtration Rate 82 mL/min (>60); Est Glom Filt Rate - Afr Amer 99 mL/min (>60); Glucose 111 mg/dL (74-106); Potassium 3.3 mmol/L (3.5-5.1); Sodium Level 140 mmol/L (136-145)
[2024-07-14 08:35] VITALS: O2SAT 99
[2024-07-14] MEDS: Potassium Chloride Oral Tablet 20 MEQ 40 MEQ PO (08:50)
[2024-07-14] MEDS: Enoxaparin 40 MG/0.4 ML Syringe SC (08:50)
[2024-07-14] MEDS: Spironolactone 50 MG Tablet PO (08:50)
[2024-07-14] MEDS: Topiramate 100 MG Tablet PO (08:51)
[2024-07-14 08:56] VITALS: BP 112/70; PULSE 82; RESP 14; TEMP 37.2; O2SAT 99
--- NOTE | 2024-07-14 10:41 | DCINST_ITS ---
Discharge Instructions Diet Discharge Diet: Light diet - advance as tolerated and Soft diet Activity Discharge Activity: Return to Normal Activity Weight Bearing Status: Weight bearing as tolerated Dressing / Incision Call your doctor if you observe: Fever of 101 or Higher, Coldness, Increased Pain, Numbness or Tingling, Change in Color, Inability to urinate, Inability to have a bowel movement, Shortness of breath, Dizziness, Fainting spells, Swelling in the ankles, Chest pain, Prolonged hiccupping, Increased palpitations (irregular heartbeat) and Calf discomfort Follow Up Care When: IN 2 WEEKS Test Results: Test results from this visit will be discussed in further detail at your follow- up appointment, if applicable. Discharge Plan Admission Admit Date/Time: 07/10/24 15:21 Primary Reason for Your Visit: First recurrent C. difficile colitis Attending Provider: Marc Reece Primary Care Provider: Stanislaw Neely Consulting Providers: Darian Peres; Eric Pritchett Instructions Additional Instructions / Restrictions: Patient was strictly said to stop oral vancomycin when she gets prior authorization approved of Dificid and Dificid dispensed to her. Till then she can take vancomycin 125 mg oral capsule as instructed below Discharge Orders/Prescriptions Prescriptions: New dicyclomine 20 mg tablet 20 mg PO TID PRN (Reason: ABDOMINAL CRAMPS) Qty: 30 0RF L.acidoph,saliva-B.bif-S.therm 175 mg Capsule 1 cap PO BID 30 Days Qty: 0 0RF Rx Instructions: Probiotic available udfw-rjk-wuyuwev ondansetron 4 mg tablet,disintegrating 4 mg PO Q6H PRN (Reason: nausea and vomiting) Qty: 30 0RF vancomycin [Vancocin] 125 mg capsule See Rx Instructions .ROUTE .COMPLEX Qty: 75 0RF Rx Instructions: 1 capsule 4 times daily by mouth for 10 days then 1 capsule twice daily for next 1 week, 1 capsule once daily for 1 week then 125 mg every other day for next 4 weeks. Continued topiramate 100 mg tablet 100 mg PO DAILY spironolactone 50 mg tablet 50 mg PO DAILY onabotulinumtoxinA [Botox] .ROUTE Dificid 200 mg tablet 200 mg PO BID 10 Days Qty: 20 0RF Referrals / Follow Up: Stanislaw Neely DO [Primary Care Provider] - Rodriguez Suggs MD [Med Staff - Terrazzo Grinder] - FriendDarian DO [Med Staff - Active Staff] - Within 1 Month Disposition Disposition (needs filled in before D/C Order can be placed): Home, Self Care
--- NOTE | 2024-07-14 11:04 | DS.PCM_ITS ---
Providers Date of Admission: 07/10/24 Date of Discharge: 07/14/24 Primary Care Physician: Dr. Stanislaw Neely, DO Consultations 07/10/24 16:45 Consult: Gastroenterology Routine Consulting Provider: Darian Peres Reason for Consult: diffuse colitis on CT, recent cdiff dx w/ failed OP vancomycin EMERGENT Consult: No MD Notified: Yes Date Notified: 07/10/24 Time Notified: 17:43 Method of Notification: Text Reason For Visit: ABDOMINAL PAIN W/ DIARRHEA, CONCERN FOR C DIFF Diagnosis Discharge Diagnosis (1) Colitis: Status: Acute Code(s): K52.9 - Noninfective gastroenteritis and colitis, unspecified (2) C. difficile enteritis: Status: Acute Code(s): A04.72 - Enterocolitis due to Clostridium difficile, not specified as recurrent (3) Underweight: Status: Acute Code(s): R63.6 - Underweight Plan Patient is a 48-year-old female who presented [facility] ED on 07/10/2024 with worsening abdominal pain and diarrhea. The patient has not drink water and food since last . Recently finished treatment for C. difficile. Weight loss more than 10 pounds. 1. Diffuse colitis due to first recurrence of C. difficile colitis after improvement on 10 days of index C. difficile colitis: Admitted under inpatient status. GI consulted. CT abdomen pelvis imaging individually reviewed which showed diffuse colitis, worst in the ascending and transverse colon. C. difficile toxin was positive on 06/24 (in [facility] records). Completed 10-day course of vancomycin without much improvement on 07/05. Patient afebrile, hemodynamically stable, normal WBC count, normal creatinine so no concern for severe C. difficile infection. Although preferred therapeutic agent is fidaxomicin but unfortunately we do not have on formulary. Patient is on pulse and taper vancomycin therapy. Discussed with ID. Vancomycin 125 mg p.o. for 2 weeks then 125 mg twice daily for 7 days, 125 mg daily for 7 days then 125 mg every other day for 2 to 4 weeks. 10: Transitional soft diet recommended. Patient still has significant abdominal cramps, tenesmus and defecation urgency. Was evaluated by ophthalmic medical technologist and Flagyl and vancomycin enema added. Cholestyramine added. 07/13: Continue vancomycin. Flagyl was discontinued yesterday as patient has perioral numbness/tingling. Continue vancomycin oral. Dr. Peres prescribed Dificid 200 mg twice daily for 10 days as an alternative treatment for vancomycin as vancomycin oral will be prolonged with taper and Dificid might be more effective option. Patient states she still has diarrhea I want to stay. Dificid will need prior authorization as not covered by her insurance. 07/14: Patient is stated that she had 6 bowel movement yesterday and 2 today. As per nursing staff, she had 1 bowel movement overnight. Stool frequency and volume has improved. Abdomen is soft on exam. Advised discharged on vancomycin long taper course as recommended above. GI office will do prior authorization for Dificid. Patient was advised to take vancomycin oral capsule as instructed in the prescription till she gets Dificid prescription and dispense. She was instructed to stop vancomycin oral once he starts taking Dificid. Advised follow-up in GI office in 4 weeks. 2. Mild hypokalemia ? Potassium 3.4 on admit. Mag and Phos normal. Suspect due to GI losses. Replete as needed. 07/11 repeat potassium 3.3. Serum magnesium and phosphorus level normal. 07/12 is still hypokalemia even on spironolactone for acne. Continue potassium replacement. Serum magnesium and phosphorus level normal 07/14: Mild hypokalemia. Potassium placement ordered. Expected hypokalemia to get corrected once diarrhea stops. 3. Underweight BMI ? BMI 18.4 on admit. Patient reports being thin at baseline but has not been eating much over the past few weeks due to the C. difficile infection. Nutrition consulted. 4. History of migraines Continue home topiramate. 5. History of acne ? Continue home spironolactone. DVT prophylaxis: Lovenox CODE STATUS: Full code, verified Medications at Discharge Home Medications onabotulinumtoxinA .ROUTE MIGRANES 07/10/24 spironolactone 50 mg tablet 50 mg PO DAILY ACNE 07/10/24 topiramate 100 mg tablet 100 mg PO DAILY migraine 07/10/24 fidaxomicin 200 mg tablet (Dificid) 200 mg PO BID 10 days #20 tabs 07/11/24 L.acidophil,salivari-Bifido bifidum-Strep thermoph 175 mg capsule 1 cap PO BID 1 month #0 caps 07/14/24 dicyclomine 20 mg tablet 20 mg PO TID PRN ABDOMINAL CRAMPS #30 tabs 07/14/24 ondansetron 4 mg disintegrating tablet 4 mg PO Q6H PRN nausea and vomiting #30 tabs 07/14/24 vancomycin 125 mg capsule (Vancocin) See Rx Instructions .Route .COMPLEX #75 caps 07/14/24 Physical Exam Narrative Seen and examined. Patient is Sterets he has 2 bowel movement in the morning but a small amount. No blood. Tenesmus and stool urgency has much improved. Abdominal cramps has resolved. No blood. Physical exam General: Alert, Oriented x3, Cooperative fatigue. HEENT: Atraumatic, PERRLA, EOMI, Normocephalic Oral: Oral mucosa moist. No Gingival or Mucosal Lesions/ Ulcerations Neck: Supple, No JVD, Negative Carotid Bruits Chest wall/Lungs: Air entry diminished in bilateral lung bases. No crepitation/rhonchi Cardiovascular: Regular rate, Regular Rhythm, Normal S1, Normal S2, No M/G/R Abdomen: Bowel Sounds Present, Soft, no tenderness. Nondistended. : No dysuria. No renal angle tenderness. No suprapubic tenderness. Extremities: No edema, Capillary Refill Less than 3 Seconds Skin: No rashes, No breakdown Musculoskeletal: No Tenderness to Palpation of Joints or Extremities Neurological: Cranial nerves II-XII grossly intact, DTR 2+/4. No acute focal neurological deficit. Psych/Mental Status: Flat affect Medical Records Data Medical Nutrition Assessment Dietitian: Malnutrition Criteria Met Start: 07/11/24 14:56 Freq: Status: Active Protocol: Document 07/13/24 14:39 SB (Rec: 07/13/24 14:39 SB [id number]) Nutrition Malnutrition Evidence of Malnutrition Exists Yes Malnutrition (severe): Acute Illness/Injury Evidenced By Suboptimal Energy Intake ( Severe),Weight Loss (Severe), Physical Changes (Severe) Clinical Problem Acute Disease or Injury Related Malnutrition Etiology severe malnutrition related to inadequate oral intake Signs/Symptoms as evidenced by PO meeting <50 % of estimated nutrition needs and 11% unintentional weight loss x 2 months, severe muscle wasting in clavicle region, and BMI 18.4. Status Active Problem Recommendation Dietitian Recommendations/Changes Recommend regular diet, as diet is advanced. Will d/c 120ml vanilla ensure plus high protein 4x daily with medpass d/t pr refusal. Will order 240ml ensure clear TID with meals- likes dunn flavor. Will monitor weight, as available. Reviewed and approved by Yanira Campbell, MS, RD, LD. Weight / BMI Weight Weight: 113 lb 14.394 oz Body Mass Index (BMI) 18.3 ABG / Lab / Microbiology Data 07/14/24 06:57 07/14/24 06:57 Laboratory: Laboratory Results - last 24 hr 07/14/24 06:57: WBC 5.9, RBC 4.84, Hgb 13.9, Hct 41.5, MCV 85.7, MCH 28.7, MCHC 33.5, RDW Std Deviation 39.2, RDW Coeff of Stephany 12.6, Plt Count 297, MPV 9.8, Immature Gran % (Auto) 0.500, Neut % (Auto) 56.6, Lymph % (Auto) 26.7, [place] % (Auto) 9.8, Eos % (Auto) 5.2 H, Baso % (Auto) 1.2 H, Absolute Neuts (auto) 3.4, Absolute Lymphs (auto) 1.58, Nucleated RBC % 0, Sodium 140, Potassium 3.3 L, C hloride 113 H, Carbon Dioxide 20.0 L, Anion Gap 7, BUN 3 L, Creatinine 0.80, Estim Creat Clear Calc 70.90, Est GFR (MDRD) Af Amer 99, Est GFR (MDRD) Non-Af 82, BUN/Creatinine Ratio 3.8 L, Glucose 111 H, Calcium 9.1 Microbiology: Microbiology 07/12/24 16:20 Mucosa - Nose Coronavirus COVID-19 PCR - Final 07/11/24 17:30 Stool Stool Lactoferrin - Final 07/11/24 17:30 Stool Enteric Bacteriology - Final 07/10/24 10:00 Stool C. difficile GDH Antigen & Toxins - Final Toxigenic C. difficile 07/10/24 10:00 Stool Clostridioides difficile (PCR) - Final D/C Instructions Discharge Diet: Light diet - advance as tolerated and Soft diet Weight Bearing Status: Weight bearing as tolerated Call your doctor if you observe: Fever of 101 or Higher, Coldness, Increased Pain, Numbness or Tingling, Change in Color, Inability to urinate, Inability to have a bowel movement, Shortness of breath, Dizziness, Fainting spells, Swelling in the ankles, Chest pain, Prolonged hiccupping, Increased palpitations (irregular heartbeat) and Calf discomfort When: IN 2 WEEKS Meaningful Use Info Meaningful Use Meaningful Use Diagnoses (Choose all that apply): None applicable Ischemic Stroke Statin Dosing Therapy Reference: STATIN DOSE THERAPY REFERENCE: * Patients > 75 years receive moderate or high dose statin therapy. * Patients 75 years or YOUNGER should receive HIGH intensity statin dose unless contraindicated. You will be required to document reason for non-treatment if statin daily dose does not meet guidelines. HIGH DOSE STATIN THERAPY DAILY Atorvastatin > than or = to 40 mg Rosuvastatin > than or = to 20 mg Amlodipine + Atorvastatin > than or = to 2.5/40 mg Ezetimibe + Simvastatin 10/80 mg Simvastatin 80mg Discharge Plan Admission Admit Date/Time: 07/10/24 15:21 Primary Reason for Your Visit: First recurrent C. difficile colitis Attending Provider: Marc Reece Primary Care Provider: Stanislaw Neely Consulting Providers: Darian Peres; Eric Pritchett Instructions Additional Instructions / Restrictions: Patient was strictly said to stop oral vancomycin when she gets prior authorization approved of Dificid and Dificid dispensed to her. Till then she can take vancomycin 125 mg oral capsule as instructed below Discharge Orders/Prescriptions Prescriptions: New dicyclomine 20 mg tablet 20 mg PO TID PRN (Reason: ABDOMINAL CRAMPS) Qty: 30 0RF L.acidoph,saliva-B.bif-S.therm 175 mg Capsule 1 cap PO BID 30 Days Qty: 0 0RF Rx Instructions: Probiotic available pqbd-nox-mnwmuak ondansetron 4 mg tablet,disintegrating 4 mg PO Q6H PRN (Reason: nausea and vomiting) Qty: 30 0RF vancomycin [Vancocin] 125 mg capsule See Rx Instructions .ROUTE .COMPLEX Qty: 75 0RF Rx Instructions: 1 capsule 4 times daily by mouth for 10 days then 1 capsule twice daily for next 1 week, 1 capsule once daily for 1 week then 125 mg every other day for next 4 weeks. Continued topiramate 100 mg tablet 100 mg PO DAILY spironolactone 50 mg tablet 50 mg PO DAILY onabotulinumtoxinA [Botox] .ROUTE Dificid 200 mg tablet 200 mg PO BID 10 Days Qty: 20 0RF Referrals / Follow Up: Stanislaw Neely DO [Primary Care Provider] - Rodriguez Suggs MD [Med Staff - Mold Closer] - Darian Peres DO [Med Staff - Active Staff] - Within 1 Month Disposition Disposition (needs filled in before D/C Order can be placed): Home, Self Care Charges/Coding Visit Charges Inpatient E&M: 20862 Disch Hosp >30min
--- NOTE | 2024-07-14 11:41 | PHA.DC_ITS ---
Pharmacy [facility] has performed discharge medication reconciliation and counseling for this patient. The patient's discharge medication list was reviewed for discrepancies and discrepancies were resolved. The patient was counseled on the following discharge medications and changes in medications for homegoing were reviewed. The Reason for Use, instructions for use, and potential side effects were reviewed for all new medications. The patient's questions regarding all of their medications were answered. 1. Vancomycin 1250 mg PO QID x 10 days, BID x 7 days, Daily x 7 days QOD x 28 days 2. Dicyclomine 20 mg PO TID PRN abdominal cramps 3. Ondansetron 4 mg PO Q6H PRN nausea/vomiting The patient was able to verbally demonstrate an understanding of their discharge medications. Medications at Discharge Home Medications onabotulinumtoxinA .ROUTE MIGRANES 07/10/24 spironolactone 50 mg tablet 50 mg PO DAILY ACNE 07/10/24 topiramate 100 mg tablet 100 mg PO DAILY migraine 07/10/24 fidaxomicin 200 mg tablet (Dificid) 200 mg PO BID 10 days #20 tabs 07/11/24 L.acidophil,salivari-Bifido bifidum-Strep thermoph 175 mg capsule 1 cap PO BID 1 month #0 caps 07/14/24 dicyclomine 20 mg tablet 20 mg PO TID PRN ABDOMINAL CRAMPS #30 tabs 07/14/24 ondansetron 4 mg disintegrating tablet 4 mg PO Q6H PRN nausea and vomiting #30 tabs 07/14/24 vancomycin 125 mg capsule (Vancocin) See Rx Instructions .Route .COMPLEX #75 caps 07/14/24
--- NOTE | 2024-07-14 12:17 | CASEMGMT ---
Addendum entered by Soheila Maldonado 07/14/24 13:03: Hospitalist ordered firvanq. TC to [facility], spoke with Pramod, cost is $28.76. No PA needed. Original Note: TC from Oct in pharmacy, pt has a PA for vancomycin. She started the PA in cover my meds. DONNA WHEELER signed in and completed on cover my meds and was given the information that [facility] does not handle this and to call [facility]. TC to [facility], spoke with Chandrika who states pt has had to have tried firvanq and failed within the last 180 days before the vanc capsules will be approved. Message sent to hospitalist.
--- NOTE | 2024-07-14 12:50 | NS ---
Informed pt about Banatrol Plus, made by [facility], to help with c.diff/diarrhea. Banatrol contains prebiotics and fiber that would be beneficial for the gut. Told pt if she was interesting in getting this product, it is available on [employer].
[2024-07-14] MEDS: 0.9% Saline Lock 10 ML Syringe IV (13:21)
[2024-07-14 14:10] LABS: Calprotectin, Stool 2020 ug/g (0-120)
[2024-07-14 15:00] VITALS: BP 110/62; PULSE 96; RESP 16; TEMP 36.8; O2SAT 98
[2024-07-14 17:33] VITALS: BP 116/67; PULSE 93; RESP 16; TEMP 37.1; O2SAT 99
== END 2024-07-14 17:33 | disposition home or self-care (01) | DRG 391 ==
LOC: ED 14:42 → MS3 15:32
PROVIDERS: Admitting Provider Hospitalist; Emergency Provider Emergency Medicine; PCP Student in an Organized Health Care Education/Training Program; Visit Provider Internal Medicine
DX: K52.9 Noninfective gastroenteritis and colitis, unspecified (principal); E43 Unspecified severe protein-calorie malnutrition; Z68.1 Body mass index [BMI] 19.9 or less, adult; E86.0 Dehydration; E87.6 Hypokalemia; R63.0 Anorexia; A04.72 Enterocolitis due to Clostridium difficile, not specified as recurrent
CPT/HCPCS: 36415; 74177; 80048; 80053; 80076; 81002; 83605; 83630; 83735; 83993; 84100; 85025; 85027; 87493; 87506; 87635; 94668; 97802; 97803; 99284; J7030; J7050; J7120; Q9967; A4216; J2405

== ENCOUNTER 2024-08-23 09:27 | Outpatient (CLI) | payer OTHER, SELFPAY ==
[2024-08-23 09:46] VITALS: BP 112/80; PULSE 83; RESP 16; TEMP 36.3; O2SAT 100
[2024-08-23] MEDS: BEZLOTOXUMAB IV (09:55)
[2024-08-23] MEDS: NORMAL SALINE 0.9% IV (09:55)
[2024-08-23] MEDS: 0.9% NaCl Peripheral Flush Adult/Peds IV (09:56)
== END 2024-08-23 11:00 | disposition home or self-care (01) ==
LOC: MS3OUT 09:28 → MS3 09:30
PROVIDERS: PCP Student in an Organized Health Care Education/Training Program; Referring Provider Internal Medicine Gastroenterology; Visit Provider Internal Medicine Gastroenterology
DX: A04.72 Enterocolitis due to Clostridium difficile, not specified as recurrent (principal)
CPT/HCPCS: 96365; J7050; A4216; J0565

== ENCOUNTER → 2024-09-29 | Outpatient (CLI) | payer OTHER, SELFPAY ==
--- NOTE | 2024-09-29 12:29 | NM_ITS ---
CLINICAL: 49-year-old female with history of abdominal bloating and early satiety. SEMI-SOLID PHASE 99m Tc SULFUR COLLOID GASTRIC EMPTYING STUDY COMPARISON: None available FINDINGS: The patient was administered 1.1 mCi of 99m Tc sulfur colloid mixed with oatmeal and consumed per os. Image acquisitions in the anterior-posterior projections were obtained for 60 minutes. There is prompt visualization of the stomach. There is no gastroesophageal reflux identified. First order kinetics are maintained throughout the duration of the acquisitions. The T ? linear fit was extrapolated to be 137.77 minutes, (Normal: 12-56 minutes). NM/Gastric Emptying Study IMPRESSION: 1. ABNORMAL 99m Tc sulfur colloid semi-solid phase (oatmeal) gastric emptying imaging examination. A. There is delayed semi-solid phase gastric emptying compared to normal controls with maintained first order kinetics throughout all components of the examination. (Lilo et al, J Nucl Med Tech 38: 186, 2010). Electronically Signed: Kamran Bauer DO at 13:22 EST ,
== END | disposition home or self-care (01) ==
LOC: NM 12:25
PROVIDERS: PCP Student in an Organized Health Care Education/Training Program; Referring Provider Internal Medicine Gastroenterology; Visit Provider Internal Medicine Gastroenterology
DX: R63.0 Anorexia (principal); R14.0 Abdominal distension (gaseous)
CPT/HCPCS: 78264; A9541

== ENCOUNTER → 2024-11-01 | Outpatient (CLI) | payer OTHER, SELFPAY ==
--- NOTE | 2024-11-01 08:31 | NM_ITS ---
CLINICAL: 49-year-old female with history of abnormal semisolid gastric emptying examination. SOLID PHASE 99m Tc SULFUR COLLOID GASTRIC EMPTYING STUDY COMPARISON: Semisolid phase gastric emptying study report 09/29/2024 FINDINGS: The patient was administered 1.0 mCi of 99m Tc sulfur colloid mixed with egg and consumed per os. Image acquisitions in the anterior-posterior projections were obtained 233 minutes following meal consumption. There is prompt visualization of the stomach. There is no gastroesophageal reflux identified. First order kinetics are maintained throughout the duration of the acquisitions. The T ? linear fit was calculated to be 133.35 minutes, (Normal 65-110 minutes). 87 % emptying and 13 % retention are defined at 4 hours post meal ingestion. NM/Gastric Emptying Study - 4 HR IMPRESSION: 1. NORMAL 99m Tc sulfur colloid solid phase gastric emptying imaging examination. A. There is normal and preserved solid phase gastric emptying compared to normal controls with maintained first order kinetics throughout all components of the examination. (Baldomero et al, Gastroenterology 77: 75, 1979 Alma et al, Semin Nucl Med 12: 116, 1981 Alexandr et al, SNM Procedure Guidelines Adult Solid Meal Gastric Emptying Study 3.0 [email or web address]). B. Greater than 90% emptying of the initial gastric contents at 4 hours post dose is consistent with normal solid phase gastric emptying which correlates with the results of the T ? emptying calculation. (Young et al, J Nucl Med 48: 568, 2007). C. Overall compared to the semisolid phase gastric emptying examination dated 09/29/2024, there is no definitive interim scintigraphic change. Electronically Signed: Kamran Bauer DO at 11:58 EST ,
== END | disposition home or self-care (01) ==
LOC: NM 08:18
PROVIDERS: PCP Student in an Organized Health Care Education/Training Program; Referring Provider Internal Medicine Gastroenterology; Visit Provider Internal Medicine Gastroenterology
DX: A04.72 Enterocolitis due to Clostridium difficile, not specified as recurrent (principal); K52.9 Noninfective gastroenteritis and colitis, unspecified; R63.0 Anorexia
CPT/HCPCS: 78264; A9541